=== PATIENT | male | born 1975 | race Caucasian/White ===

== ENCOUNTER 2018-09-28 06:07 | Emergency (ER) | payer SELFPAY ==
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
[2018-09-28 06:17] VITALS: BP 148/98; PULSE 139; RESP 18; TEMP 36.8; O2SAT 99
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
[2018-09-28] MEDS: ACETAMINOPHEN 325 MG TABLET 650 MG PO (06:41)
[2018-09-28] MEDS: TET,DIPH,PERTUSS(ACELL),VAC/PF 0.5 ML SYRINGE IM (06:42)
== END 2018-09-28 07:10 | disposition home or self-care (01) ==
PROVIDERS: Emergency Provider Emergency Medicine
DX: S06.0X9A Concussion with loss of consciousness of unspecified duration, initial encounter (principal); Y08.02XA Assault by strike by baseball bat, initial encounter
CPT/HCPCS: 70450; 90471; 99282; 99283; 90715

== ENCOUNTER 2020-03-20 05:24 | Emergency (ER) | payer SELFPAY ==
[2020-03-20 05:32] VITALS: BP 148/89; PULSE 116; RESP 20; TEMP 36.9; O2SAT 99; BMI 29.2
--- NOTE | 2020-03-20 05:33 | DI.RAD.S_ITS ---
PROCEDURE: XR HAND RT MIN 3V INDICATIONS: dog bite right thumb TECHNIQUE: 3 views of the hand(s) acquired. COMPARISON: None. FINDINGS: Bones: No fractures or dislocations. Carpal bones are normally aligned. No suspicious bony lesions. No plain film evidence of osteomyelitis. Soft tissues: No suspicious soft tissue calcifications. No soft tissue gas. No radiopaque foreign body. IMPRESSION: No evidence acute bony abnormality of the right hand. No soft tissue gas. No radiopaque foreign body. If clinical suspicion and/or symptoms persist, further assessment with repeat plain films, or advanced imaging (e.g., CT, MRI, or bone scan) may be helpful for further assessment. Dictated by: Moody Mary M.D. on 03/20/2020 at 6:49 Approved by: Moody Mary M.D. on 03/20/2020 at 6:50
--- NOTE | 2020-03-20 05:45 | ED.ANIMALBIT ---
HPI - Animal Bite General Chief Complaint: Animal Bite Stated Complaint: DOG BITE RIGHT HAND STATES HIS DOG Time Seen by Provider: 03/20/20 05:45 Source: patient Mode of arrival: Ambulatory Limitations: no limitations History of Present Illness HPI narrative: Otherwise healthy 44-year-old gentleman who was bit by his own dog over the proximal phalanx of his right thumb at approximately noon yesterday. He was apparently trying to break up a dog fight. His dog ended up biting his thumb with the large puncture wound on the palmar surface of the thumb that does not appear to be intra-articular. Wound was washed out well at home and of the next 18 hours has become increasingly painful, warm, swollen and is throbbing now. He has full range of motion at all joints of the thumb and is completely neurovascularly intact. complaint: animal bite Onset (ago): hour(s) (18) Animal: dog Description of animal: household pet Mechanism: bite Location - Extremities: Right: hand Pain description: sharp (throbbing) Severity scale (1-10): 8 Context: animals fighting Associated symptoms: erythema Treatments prior to arrival: irrigation Related Data Patient tetanus UTD: Yes Previous Rx's Medication Instructions Recorded amoxicillin-pot clavulanate 1 tab PO BID #20 tab 03/20/20 [Augmentin XR] Allergies Allergy/AdvReac Type Severity Reaction Status Date / Time No Known Drug Allergies Allergy Verified 09/28/18 06:21 Review of Systems Review of Systems Narrative: Pertinent positive and negative findings as per HPI Remainder of review of systems is otherwise unremarkable for Constitutional: Fevers, chills, weakness CV: Chest pain, palpitations, dyspnea on exertion Respiratory: Cough, wheeze, dyspnea GI: Nausea, vomiting, diarrhea, change in bowel habits, black or bloody stools : Dysuria, hematuria, flank pain MS: Muscle weakness, numbness, joint swelling or warmth Skin: Rashes, nonhealing lesions Neuro: Syncope, dizziness, tingling Patient History Social History Smoking Status: Current every day smoker Smoking Status: Current every day smoker alcohol intake frequency: 0-2 drinks per day Substance Use Type: marijuana Exam Narrative Exam Narrative: General: Alert appropriate in no acute distress Respiratory: Able to speak in full sentences, no obvious respiratory distress Skin: No obvious rashes, warm and dry Neurologic: Grossly intact no obvious asymmetries or abnormalities Psych, appropriate insight and affect, cooperative Extremity: Puncture wound on the palmar surface proximal phalanx right thumb with warmth and swelling to the area without significant redness. Full range of motion at the base of the thumb and thumb joint. No discharge from the wound no lymphangitic spread and no axillary adenopathy the right axilla. Initial Vital Signs Initial Vital Signs: Vital Signs Temperature 98.5 F 03/20/20 05:32 Pulse Rate 116 H 03/20/20 05:32 Respiratory Rate 20 03/20/20 05:32 Blood Pressure 148/89 H 03/20/20 05:32 Pulse Oximetry 99 03/20/20 05:32 Course Orders Ordered: ED Orders 03/20/20 05:33 XR hand RT min 3V Stat 03/20/20 06:15 Basic Metabolic Panel Stat Complete Blood Count AUTO DIFF Stat Discontinued Medications Ampicillin Sodium/Sulbactam (Sodium 1.5 gm/ Sodium Chloride) 100 mls @ 100 mls/hr IV NOW ONE Stop: 03/20/20 05:52 Last Admin: 03/20/20 06:12 Dose: 100 mls/hr Documented by: SUDHA Ketorolac Tromethamine (Toradol) 15 mg IV NOW ONE Stop: 03/20/20 05:52 Last Admin: 03/20/20 06:12 Dose: 15 mg Documented by: SUDHA Oxycodone/Acetaminophen (Endocet 5/325 Prepack) 1 bottle MISC SEEINSTR ONE Stop: 03/20/20 06:52 Vital Signs Vital signs: Vital Signs - 8 hr 03/20/20 05:32 Temperature 98.5 F Pulse Rate 116 H Respiratory Rate 20 Blood Pressure 148/89 H Pulse Oximetry 99 MDM - Animal Bite Medical Records Attestation: I reviewed the patient's medical records. Lab Data Attestation: I reviewed the patient's lab results. Result diagrams: 03/20/20 06:15 03/20/20 06:15 Labs: Lab Results 03/20/20 03/20/20 Range/Units 06:15 06:15 WBC 12.3 H (4.5-11.0) X10^3/uL RBC 4.98 (4.5-5.9) X10^6/uL Hgb 15.6 (13.5-17.5) g/dL Hct 45.1 (41-53) % MCV 90.5 (80-100) fL MCH 31.2 (26-34) PG MCHC 34.5 (30-36) % RDW 12.8 (11.6-14.8) % Plt Count 318 (150-400) X10^3/uL Neut % (Auto) 77.7 H (50-75) % Lymph % (Auto) 10.4 L (25-40) % [place] % (Auto) 10.1 (3-14) % Eos % (Auto) 1.2 L (2-4) % Baso % (Auto) 0.6 (0-2) % Neut # (Auto) 9600 H (7441-6353) /uL Lymph # (Auto) 1300 (9721-0115) /uL [place] # (Auto) 1200 H (0-900) /uL Eos # (Auto) 100 (0-450) /uL Baso # (Auto) 100 (0-100) /uL Sodium 137 (137-145) mmol/L Potassium 4.4 (3.4-5.1) mmol/L Chloride 100 (98-107) mmol/L Carbon Dioxide 31 (22-32) mmol/L BUN 19 (9-20) mg/dL Creatinine 0.81 (0.66-1.25) mg/dL Estimated GFR > 60.0 (>60) mL/min BUN/Creatinine Ratio 23.5 H (6-22) Glucose 109 H (70-100) mg/dL Calcium 9.9 (8.4-10.2) mg/dL Imaging Data Right hand x-ray: Attestation: I personally reviewed and interpreted this imaging study as follows: My Impression: No bony injury and no obvious subcutaneous air around the area of the wound MDM Narrative Medical decision making narrative: Puncture wound dog bite right thumb does not appear to be arterial full range of motion with no flexor or extensor tendon damage and no initial suggestion of joint involvement. Because of the mechanism and the pain will check routine blood work and begin with Unasyn. Toradol for pain control and will re-evaluate heart rate. No fevers significant erythema or lymphangitic spread yet so sepsis is less likely. Given the location and the mechanism certainly at high risk for complication. Patient states he is up-to-date on tetanus. Pain significantly better after IV Toradol. Discharge Plan Departure Patient Disposition: Home Clinical Impression: Dog bite Qualifiers: Encounter type: initial encounter Qualified Code(s): W54.0XXA - Bitten by dog, initial encounter Instructions: DI for Dog Bite Activity Restrictions/Additional Instructions: Thank you for coming in today Your x-ray is reassuring. Your hand clearly is already infected. It does not look like you have developed an overwhelming infection or sepsis and does not look like the infection is deep into your hand or traveling up your arm. Each of these things are concerns and dog bites can get really bad really quickly particularly in the hand. I am going to give you a prescription for Augmentin, an antibiotic. I would like you to take 2 doses today. Using 400 mg of ibuprofen (2 legb-[id number]-[id number] pills) and 1 Tylenol every 6 hours can be very helpful in controlling pain. For severe pain you can use 400 mg of ibuprofen and a single Percocet. Keeping the hand elevated above the level of your heart will help prevent the throbbing sensation. If you are having increasing pain despite pain medications, developing overall fevers, red streaks spreading appear arm or get to the point that you can not move the joints of your thumb a your wrist you need to return to the emergency department. I hope you heal quickly. Prescriptions: New amoxicillin-pot clavulanate [Augmentin XR] 1,000-62.5 mg tablet extended release 12 hr 1 tab PO BID Qty: 20 RF: 0
[2020-03-20] MEDS: KETOROLAC 60 MG/2 ML VIAL 15 MG IV (06:12)
[2020-03-20] MEDS: AMPICILLIN/SULBACTAM 1.5 GM 1.5 GM in SODIUM CHLORIDE 0.9% 100 ML IV (06:12)
[2020-03-20 06:28] LABS: Add Manual Diff / Slide Review NO; Basophils Absolute Auto 100 /uL (0-100); Basophils Percent Auto 0.6 % (0-2); Eosinophils Absolute Auto 100 /uL (0-450); Eosinophils Percent Auto 1.2 % (2-4); Hematocrit 45.1 % (41-53); Hemoglobin 15.6 g/dL (13.5-17.5); Lymphocytes Absolute Auto 1300 /uL (1100-4500); Lymphocytes Percent Auto 10.4 % (25-40); Mean Corpuscular HGB Conc 34.5 % (30-36); Mean Corpuscular Hemoglobin 31.2 PG (26-34); Mean Corpuscular Volume 90.5 fL (80-100); Monocytes Absolute Auto 1200 /uL (0-900); Monocytes Percent Auto 10.1 % (3-14); Neutrophils Absolute Auto 9600 /uL (1500-7000); Neutrophils Percent Auto 77.7 % (50-75); Platelet Count 318 X10^3/uL (150-400); Red Blood Cell Count 4.98 X10^6/uL (4.5-5.9); Red Cell Distribution Width 12.8 % (11.6-14.8); White Blood Cell Count 12.3 X10^3/uL (4.5-11.0)
[2020-03-20 06:37] LABS: BUN Creatinine Ratio 23.5 (6-22); Blood Urea Nitrogen 19 mg/dL (9-20); Calcium 9.9 mg/dL (8.4-10.2); Carbon Dioxide 31 mmol/L (22-32); Chloride 100 mmol/L (98-107); Estimated Glomerular Filt Rate > 60.0 mL/min (>60); Glucose 109 mg/dL (70-100); HEMOLYSIS < 15 (0-50); Potassium 4.4 mmol/L (3.4-5.1); Sodium 137 mmol/L (137-145)
[2020-03-20] MEDS: OXYCODONE/APAP 5/325 PREPACK 1 BOTTLE MISC (07:01)
[2020-03-20 07:36] VITALS: BP 142/84; PULSE 105; RESP 16; TEMP 37; O2SAT 98
--- NOTE | 2020-04-18 09:52 | ONC.MSW ---
Description: New Referral/ABO's Activity: DANK was notified by [facility] pharmacist that we've received a referral for daily ABO's for a patient that was seen over the weekend in acute care for sepsis/osteomyelitis due to dog bite. He has no insurance. notes indicate that he was referred to the admission counselors over the weekend to help him apply for Medicaid, however this never happened, due to no admission counselors working over the weekend. DANK consulted with admin, who has directed us to schedule him anyway. DANK called pt to address his need for insurance, he states that his sister is going to help him apply for Medicaid today. CHUTE MAN confirmed with him that we will work on getting him scheduled today, as he missed his last dose in the hospital yesterday after he refused it and insisted on being discharged home. Updated pharmacist, triage and schedulers. Scheduling will move forward with calling him stat.
== END 2020-03-20 07:38 | disposition home or self-care (01) ==
PROVIDERS: Emergency Provider Emergency Medicine
DX: S61.051A Open bite of right thumb without damage to nail, initial encounter (principal); W54.0XXA Bitten by dog, initial encounter
CPT/HCPCS: 36415; 73130; 80048; 85025; 96365; 96375; 99284; J0295; J1885

== ENCOUNTER 2020-04-16 01:09 | Inpatient (IN) | payer OTHER, MEDICAID, SELFPAY ==
[2020-04-16] VITALS (20 sets, daily range): BP systolic 97–135; BP diastolic 66–98; PULSE 81–114; RESP 9–20; TEMP 35.8–37.1; O2SAT 94–100; BMI 30.7
--- NOTE | 2020-04-16 01:36 | ED_ITS ---
HPI - Extremity Injury (Upper) General Chief Complaint: Extremity Injury, Upper Stated Complaint: right thumb swelling injured 4 wks ago Time Seen by Provider: 04/16/20 01:10 Source: patient Mode of arrival: Ambulatory Limitations: no limitations History of Present Illness HPI narrative: 44M smoker with noncontributory medical history presents with a chief complaint of ongoing redness, pain and swelling of his right thumb. He was seen and evaluated here in the end of February for a thumb injury suffered while trying to break up a dog fight. He was bitten on the thumb and had deep wounds that were carefully cleaned and repaired here in the emergency department. He was put on Augmentin and had negative x-rays. He was largely moving in the right direction while on antibiotics but since they have stopped he is developed ongoing thumb swelling which was draining on the dorsal aspect overlying the interphalangeal joint up until 1 week ago. He denies systemic findings such as fever, chills nor nausea or vomiting. He denies hand pain and has had no red streaks up his arm. NPO since 0200 Related Data Previous Rx's Medication Instructions Recorded amoxicillin-pot clavulanate 1 tab PO BID #20 tab 03/20/20 [Augmentin XR] Allergies Allergy/AdvReac Type Severity Reaction Status Date / Time No Known Drug Allergies Allergy Verified 09/28/18 06:21 Review of Systems Constitutional Constitutional: Denies chills, Denies fatigue, Denies fever(s), Denies frequent falls, Denies lethargy and Denies weakness Eyes Eyes: Denies change in vision, Denies eye discharge, Denies irritation and Denies loss of vision ENT Ears, Nose, Mouth, and Throat: Denies change in voice, Denies dizziness, Denies neck pain, Denies sore throat and Denies throat swelling Cardiovascular Cardiovascular: Denies chest pain, Denies irregular heart rhythm, Denies lightheadedness, Denies palpitations, Denies dyspnea, Denies dyspnea on exertion and Denies orthopnea Respiratory Respiratory: Denies cough, Denies dyspnea, Denies dyspnea on exertion and Denies wheezing Gastrointestinal Gastrointestinal: Denies abdominal pain, Denies change in bowel habits, Denies diarrhea, Denies nausea and Denies vomiting Musculoskeletal Musculoskeletal: Reports arthralgias, Reports joint swelling, Denies neck pain and Denies numbness Integumentary/Breasts Skin/Breast: Denies pruritus, Reports erythema, Denies rash, Reports skin pain, Reports skin swelling and Denies wounds Neurologic Neurologic: Denies behavioral changes, Denies confusion, Denies dizziness, Denies frequent falls, Denies loss of vision, Denies numbness and Denies weakness Psychiatric Psychiatric: Denies anxiety, Denies behavioral changes, Denies confusion, Denies depression, Denies homicidal ideation and Denies suicidal ideation Endocrine Endocrine: Denies fatigue, Denies flushing and Denies palpitations Hematologic/Lymphatic Hematologic/Lymphatic: Denies easy bruising Allergic/Immunologic Allergic/Immunologic: Denies urticaria, Denies throat swelling and Denies wheezing Patient History Social History Smoking Status: Current every day smoker Smoking Status: Current every day smoker alcohol intake frequency: 0-2 drinks per day Substance Use Type: marijuana Exam Narrative Exam Narrative: GENERAL: [44] year old patient appears stated age. Well- nourished, well-developed patient, in mild distress. HEAD: Atraumatic. Normocephalic. EYES: Pupils equal round and reactive. Extraocular motions intact. No scleral icterus. No injection or drainage. ENT: Nose without bleeding, purulent drainage. Throat without erythema, tonsillar hypertrophy or exudate. Airway patent. NECK: Trachea midline. Non tender CARDIOVASCULAR: Regular rate and rhythm without murmurs, gallops, or rubs. RESPIRATORY: Clear to auscultation. Breath sounds equal bilaterally. No wheezes, rales, or rhonchi. GASTROINTESTINAL: Abdomen soft, non-tender, nondistended. EXTREMITIES: Significant swelling, redness and pain of the right thumb. Is University to swollen and range of motion is very much limited. No obvious drainage. No involvement of the hand. High suspicion for underlying abscess BACK: Nontender without deformity or crepitance. No flank tenderness. NEURO: AOx3. SKIN: No rash or erythema of visible areas other than that which is noted above Initial Vital Signs Initial Vital Signs: Vital Signs Temperature 98 F 04/16/20 01:39 Pulse Rate 113 H 04/16/20 01:39 Respiratory Rate 20 04/16/20 01:39 Blood Pressure 127/74 04/16/20 01:39 Pulse Oximetry 96 04/16/20 01:39 Course Orders Ordered: ED Orders 04/16/20 01:27 Basic Metabolic Panel Stat C-Reactive Protein Quant Stat Complete Blood Count AUTO DIFF Stat Erythrocyte Sedimentation Rate Stat 04/16/20 01:44 XR hand RT min 3V Stat Discontinued Medications Ampicillin Sodium/Sulbactam (Sodium 3 gm/ Sodium Chloride) 100 mls @ 100 mls/hr IV NOW ONE Stop: 04/16/20 01:29 Consultations Consultation #1: discussed with Dr. Morris (Ortho) early. Keep NPO, given ABX, COVID swab. Admit and will take to OR in morning. Vital Signs Vital signs: Vital Signs - 8 hr 04/16/20 01:39 Temperature 98 F Pulse Rate 113 H Respiratory Rate 20 Blood Pressure 127/74 Pulse Oximetry 96 MDM - Extremity Injury (Upper) Imaging Data Extremity x-ray #1: Attestation: I personally reviewed and interpreted this imaging study as follows: My Impression: bone erosion distal portion prox phalanx thumb, question osteo Discharge Plan Departure Patient Disposition: Admitted as Observation Clinical Impression: Osteomyelitis Admit Date/Time: 04/16/20 02:58 Admit Provider: Karuna Morris
--- NOTE | 2020-04-16 01:44 | DI.RAD.S_ITS ---
PROCEDURE: XR HAND RT MIN 3V INDICATIONS: dog bite, possible osteomyelitis thumb TECHNIQUE: 3 views of the hand(s) acquired. COMPARISON: [facility], CR, XR HAND RT MIN 3V, 03/20/2020, 5:37. FINDINGS: Bones: There is an impacted fracture identified involving the head of the proximal phalanx of the thumb with corresponding periosteal elevation and osseous erosion along the radial head of the proximal phalanx. An old injury involving the 5th metacarpal appears unchanged with residual deformity. No dislocations are identified. Soft tissues: No suspicious soft tissue calcifications. Soft tissue swelling about the thumb is present. No radiopaque foreign bodies are appreciated. IMPRESSION: Subacute fracture involving proximal phalanx of the thumb. Associated lytic focus on the head of the proximal phalanx is suspicious for osteomyelitis. Other etiologies cannot be completely excluded. Contrast enhanced MRI of the hand would be helpful for better evaluation. Dictated by: Favian Larson M.D. on 04/16/2020 at 7:45 Approved by: Favian Larson M.D. on 04/16/2020 at 7:47
[2020-04-16] MEDS: AMPICILLIN/SULBACTAM 3 GM 3 GM in SODIUM CHLORIDE 0.9% 100 ML IV ×4 (03:09→23:26)
[2020-04-16 03:14] LABS: Add Manual Diff / Slide Review NO; Basophils Absolute Auto 100 /uL (0-100); Basophils Percent Auto 1.1 % (0-2); Eosinophils Absolute Auto 200 /uL (0-450); Eosinophils Percent Auto 2.5 % (2-4); Hemoglobin 14.1 g/dL (13.5-17.5); Lymphocytes Absolute Auto 2000 /uL (1100-4500); Lymphocytes Percent Auto 28.6 % (25-40); Mean Corpuscular HGB Conc 34.5 % (30-36); Mean Corpuscular Hemoglobin 30.8 PG (26-34); Mean Corpuscular Volume 89.4 fL (80-100); Monocytes Absolute Auto 900 /uL (0-900); Monocytes Percent Auto 12.4 % (3-14); Neutrophils Absolute Auto 4000 /uL (1500-7000); Neutrophils Percent Auto 55.4 % (50-75); Platelet Count 340 X10^3/uL (150-400); Red Blood Cell Count 4.59 X10^6/uL (4.5-5.9); Red Cell Distribution Width 12.5 % (11.6-14.8); White Blood Cell Count 7.2 X10^3/uL (4.5-11.0)
[2020-04-16 03:23] LABS: Blood Urea Nitrogen 23 mg/dL (9-20); C-Reactive Protein Quant 0.6 mg/dL (<1.0); Calcium 10.1 mg/dL (8.4-10.2); Carbon Dioxide 31 mmol/L (22-32); Chloride 105 mmol/L (98-107); Estimated Glomerular Filt Rate > 60.0 mL/min (>60); Glucose 126 mg/dL (70-100); HEMOLYSIS < 15 (0-50); Sodium 140 mmol/L (137-145)
[2020-04-16 03:36] LABS: Erythrocyte Sedimentation Rate 8 MM/HR (0-15)
[2020-04-16] MEDS: SODIUM CHLORIDE 0.9% 1,000 ML 125 ML IV (03:54)
[2020-04-16 04:14] LABS: COVID19 -Nasal RAPID Negative (Negative)
--- NOTE | 2020-04-16 08:46 | PM.HP.1 ---
History of Present Illness History of Present Illness Date Patient Seen: 04/16/20 Time Patient Seen: 08:46 Date of Onset of Symptoms: 03/20/20 Chief complaint: right thumb swelling injured 4 wks ago Narrative: This is a 44-year-old gentleman who got bit by a dog in February. It was his sister's dog. He sustained an injury to the right thumb IP region. He was seen in the emergency room at [facility] on 03/20/2020. He has previously been placed on antibiotics including Augmentin. He notes persistent swelling in the right thumb but no severe pain. He returned to the emergency room last night with complaints of ongoing right thumb pain and persistent swelling. I was consulted about 3:00 a.m.. 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 Patient History Family & Social History Social History: household members friend(s) Prior Living Arrangements House Safety & Behavioral: Feels Safe in Current Yes Environment Tobacco & Substance use: Smoking Status Current every day smoker alcohol intake frequency 0-2 drinks per day Substance Use Type marijuana Meds Home Medications and Allergies Home Medications Medication Instructions Recorded Confirmed Type No Known Home Medications 04/16/20 04/16/20 History Allergies Allergy/AdvReac Type Severity Reaction Status Date / Time No Known Drug Allergies Allergy Verified 09/28/18 06:21 Review of Systems Review of Systems Narrative: Denies significant fevers or chills, no recent cardiac or respiratory his symptoms, Exam Vital Signs (past 8 hours): - 04/16/20 01:39 04/16/20 03:25 04/16/20 03:30 Temperature 98 F 98.8 F Pulse Rate 113 H 114 H 102 H Respiratory Rate 20 20 18 Blood Pressure 127/74 125/73 Blood Pressure [Left Arm] 121/66 Pulse Oximetry 96 95 95 04/16/20 08:26 Temperature 97.5 F L Pulse Rate 88 Respiratory Rate 16 Blood Pressure 135/84 Blood Pressure [Left Arm] Pulse Oximetry 94 Oxygen Delivery Method Room Air Oxygen Flow Rate 0 Narrative Exam Narrative: He is resting comfortably in bed HEENT is benign lungs are clear cor regular rate and rhythm abdomen soft and benign, his right upper extremity is remarkable for marked swelling of the right thumb is about 3 2-3 times normal size. There is significant erythema, there is some instability at the IP joint on that fairly mild pain with gentle range of motion of the IP joint. Skins noted it to be intact except for small puncture wound there is no active drainage and there is only mild to moderate erythema. Objective Labs Result Diagrams: 04/16/20 03:00 04/16/20 03:00 Labs: Laboratory Results - last 24 hr 04/16/20 04/16/20 04/16/20 03:00 03:00 03:00 WBC 7.2 RBC 4.59 Hgb 14.1 Hct 41.0 MCV 89.4 MCH 30.8 MCHC 34.5 RDW 12.5 Plt Count 340 Neut % (Auto) 55.4 Lymph % (Auto) 28.6 [place] % (Auto) 12.4 Eos % (Auto) 2.5 Baso % (Auto) 1.1 Neut # (Auto) 4000 Lymph # (Auto) 2000 [place] # (Auto) 900 Eos # (Auto) 200 Baso # (Auto) 100 ESR 8 Sodium 140 Potassium 4.0 Chloride 105 Carbon Dioxide 31 BUN 23 H Creatinine 0.92 Estimated GFR > 60.0 BUN/Creatinine Ratio 25.0 H Glucose 126 H Calcium 10.1 C-Reactive Protein 0.6 COVID-19 PCR Cancelled 04/16/20 03:00 WBC RBC Hgb Hct MCV MCH MCHC RDW Plt Count Neut % (Auto) Lymph % (Auto) [place] % (Auto) Eos % (Auto) Baso % (Auto) Neut # (Auto) Lymph # (Auto) [place] # (Auto) Eos # (Auto) Baso # (Auto) ESR Sodium Potassium Chloride Carbon Dioxide BUN Creatinine Estimated GFR BUN/Creatinine Ratio Glucose Calcium C-Reactive Protein COVID-19 PCR Negative 03/20/2020 right hand: Mild Soft tissue swelling right thumb, IP fairly normal articular cartilage space 04/16/2020 right hand: Marked joint space narrowing of the thumb IP joint, periosteal thickening and some destruction of the proximal phalanx at the thumb IP joint Assessment & Plan Assessment & Plan narrative: Impression is 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 Recommendations and plan I have recommended irrigation and debridement and IV antibiotics. I explained to him that he has a severe infection in his right thumb despite the fact that he does not have significant pain. I do see destruction of the IP joint chronic osteomyelitis with some bone loss of the proximal phalanx. I anticipate that he will need prolonged antibiotics for 6 weeks postoperatively and ultimately he may require additional surgery including a thumb IP joint fusion. Serious nature of the procedure alternatives risks benefits and complications were discussed. I do think his thumb is at risk for loss because of seriousness of the infection. Quality VTE Deep Vein Thrombosis/Pulmonary Embolism Present on Admission: No
[2020-04-16] MEDS: LACTATED RINGERS 1,000 ML 42 ML IV ×2 (09:16→10:43)
[2020-04-16] MEDS: MIDAZOLAM 2 MG/2 ML VIAL IV (09:16)
[2020-04-16] MEDS: METOCLOPRAMIDE 10 MG/2 ML INJ IV (09:23)
[2020-04-16] MEDS: FAMOTIDINE 20 MG/50 ML PIGGYBACK 200 MG IV (09:23)
--- NOTE | 2020-04-16 10:12 | SUR.OPER ---
Supine on padded OR bed, head on pillow, right arm on the arm table under control of surgeon, left arm secured on padded arm boards at <90 degrees abduction, legs uncrossed, safety belt at thigh, tape over blanket over lower legs.
[2020-04-16] MEDS: BUPIVACAINE 0.5% (PF) VIAL 10 ML INJ (10:23)
[2020-04-16] MEDS: SODIUM CHLORIDE 0.9% IRR (10:26)
[2020-04-16] MEDS: GENTAMICIN IRR (10:26)
--- NOTE | 2020-04-16 11:21 | PM.OP.1 ---
Operative Date/Time/Diagnoses Date of procedure: 04/16/20 Time of procedure: 09:21 Pre-op diagnosis: Septic right thumb IP joint and osteomyelitis of the right thumb proximal phalanx Post-op diagnosis: same Procedure & Clinicians Procedure: Right thumb IP joint irrigation and debridement with the synovectomy and debridement of infected right thumb proximal phalanx Same procedure as scheduled: Yes Indications: This is a 44-year-old gentleman who has a history of a right thumb dog bite who has chronic infection in his right thumb IP joint and evidence of osteomyelitis is brought the operating room on an urgent basis for irrigation and debridement. Surgeon: Karuna Morris Anesthesia Type: General Operative Notes Findings: Synovitis of the right thumb IP joint with significant synovial thickening and some articular cartilage loss, chronic osteomyelitis of the right thumb proximal phalanx with softening of the proximal phalanx and a loose articular cartilage piece consistent with a chronic sequestrum Specimen(s): other (Multiple cultures and PCR) Estimated Blood Loss (mL): 100 Blood products transfused: none Tourniquet time (min): 51 Procedure in detail: Patient brought the operating room and underwent the induction of a general anesthesia. His right upper extremity prepped draped standard sterile fashion. The arm was elevated and the tourniquet was inflated. Dense digital block was performed. Dorsal incision was made dissection was carried out through skin and subcutaneous tissues extensor tendon was meticulously protected. An incision was made on the radial aspect of the extensor tendon between the extensor tendon and the collateral ligaments. An there was marked thickening of the synovium of the IP joint. A synovectomy was performed sending synovial tissue which was grossly abnormal for culture and sensitivity as well as PCR. Extensive debridement of the IP joint was performed. On incision was then made along the proximal phalanx on the radial aspect of the proximal phalanx on there was gross softening of the bone and a on cyst or abscess noted in the proximal phalanx. This was meticulously debrided with a curette and a piece of articular cartilage that was grossly loose and a free fragment was removed. The bone was carefully debrided with a curette. The wound was meticulously irrigated with normal saline. A [place] drain was carefully packed into the joint. The skin was loosely closed with interrupted nylon. The wound was dressed sterilely. A splint was placed. Complications: none Post-operative Condition: stable Disposition: Acute Care Plan for aftercare: IV antibiotics for up to 6 weeks postoperatively. Check cultures and sensitivities to pick optimum antibiotics for chronic osteomyelitis of the right thumb after a dog bite. Placed PICC line.
--- NOTE | 2020-04-16 11:36 | SUR.PHASEI ---
Patient taken back to room 211. Left in stable condition with receiving RN at bedside.
[2020-04-16] MEDS: LACTATED RINGERS 1,000 ML 125 ML IV ×2 (12:10→20:17)
[2020-04-16] MEDS: SODIUM CHLORIDE 0.9% FLUSH 10 ML IV (12:10)
--- NOTE | 2020-04-16 12:22 | CM.DANOTE ---
Addendum entered by Gill Cordero R.N. 04/16/20 13:13: Went ahead and faxed referral to [facility], and included face sheet, labs, med list, H&P and operative report. Indicated on fax that patient is self pay, but plan to meet with him. He is employed. Also, on fax, indicated that PICC line will be placed, for he will need 6 weeks of IV antibiotics, but is not known which one at discharge until culture is in. Other option if for patient to come here at the hospital if he goes home on q day ABO. Original Note: DCP: Case received, EMR reviewed and checked on patient. He just had surgery and is asleep. Did put name of this caser on the white board in his room. Was able to complete the DCP assessment based upon the information in patient's chart. Patient is a 44 year old male who admitted early this morning to the care of the orthopedic team. PCP: None listed. Payer: Self, but will have to confirm with patient. Patient came to the hospital via private vehicle secondary to pain and swelling to his right thumb. According to notes, patient had been seen in the ER recently for this, and went home on oral antibiotics. Patient had been bitten by a dog in February, when he was attempting to break up a dog fight. He had been bitten by his sister's dog. Patient holds diagnosis of subacute fracture of phalant of thumb, and osteomyelitis. He just had I&D surgery of area, and is back in his room. Patient resides with friends, here in [place]. 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 He is single. According to orthopedist, it is noted that he has no insurance, but he has applied for Medicaid. Have not yet been able to discuss this with patient. He will also be needing 6 additional weeks of IV ABO, and PICC line will be placed. C&S is pending, at this time. P: DCP will plan to see patient when he is more stable to discuss options. If patient is on QD ABO, may be affordable for him, and he may be able to come over to the hospital for this. If treatments are more than once a day, then this could accrue more costs. Can also check in with [facility]. Will make an effort to talk to patient today, when he is more stable. Will go ahead and send over information to [facility] for review. Will also see what culture comes up to have a better idea of what his ABO needs will be. Gill Cordero RN/Bingo Caller
--- NOTE | 2020-04-16 12:23 | PC.NURSE ---
Addendum entered by Anna Coreas R.N. 04/16/20 13:17: Resting quietly in bed with eyes closed. Respirations regular and unlabored. VSS. Room air, cont pulse ox in place. No s/sx distress or discomfort. IV abx infusing. No further drainage/bleeding on bandage, CMS unchanged from initial post-op assessment. Call light and belongings within reach, bed alarm on. Original Note: Post-op: Arrived back to room 211 [place]x [id number]. Drowsy. Awakens to voice/touch, but dozes back to sleep quickly. Denies pain, 0 FLACC asleep. Dressing to R hand C/D/I except for scant dried blood around the thumb. Able to wiggle fingers, bilateral hands and fingers warm/pink, cap refill < 2 sec. Unable to palpate radial pulse on RUE r/t placement of dressing. Vitals stable, maintaining sats 99-100% on room air w/ cont pulse ox in place. SCD's to BLE's. IVF per orders, site in L AC WNL. Re-oriented to room and call light and encouraged to make needs known. Call light and belongings within reach. Bed alarm turned on during this immediate post-op period.
[2020-04-16] MEDS: OXYCODONE IR 5 MG TABLET PO (18:23)
[2020-04-16] MEDS: ACETAMINOPHEN 325 MG TABLET 975 MG PO (18:23)
[2020-04-16] MEDS: ASPIRIN EC 81 MG TABLET PO (20:43)
[2020-04-16] MEDS: DOCUSATE 100 MG CAPSULE PO (20:43)
--- NOTE | 2020-04-17 | DI.RAD.S_ITS ---
PROCEDURE: XR CHEST 1V INDICATIONS: check PICC placement plz TECHNIQUE: One view of the chest was acquired. COMPARISON: [facility], , CHEST 1 VIEW, 11/01/2010, 16:54. FINDINGS: Surgical changes and devices: Left-sided PICC line catheter is identified with the tip overlying the mid to lower superior vena cava. Lungs and pleura: Lungs are clear. No pleural effusions or pneumothorax. Mediastinum: Mediastinal contours appear normal. Heart size is normal. Bones and chest wall: No suspicious bony lesions. Overlying soft tissues appear unremarkable. IMPRESSION: Left-sided PICC line catheter is positioned with the tip overlying the mid to low superior vena cava. Dictated by: Favian Larson M.D. on 04/17/2020 at 14:36 Approved by: Favian Larson M.D. on 04/17/2020 at 14:36
[2020-04-17 03:10] VITALS: BP 140/83; PULSE 87; RESP 18; TEMP 37; O2SAT 97
[2020-04-17] MEDS: AMPICILLIN/SULBACTAM 3 GM 3 GM in SODIUM CHLORIDE 0.9% 100 ML IV ×2 (05:28→11:09)
[2020-04-17 05:42] LABS: Hemoglobin 14.5 g/dL (13.5-17.5); Mean Corpuscular HGB Conc 34.6 % (30-36); Mean Corpuscular Hemoglobin 31.1 PG (26-34); Mean Corpuscular Volume 89.8 fL (80-100); Platelet Count 285 X10^3/uL (150-400); Red Blood Cell Count 4.68 X10^6/uL (4.5-5.9); Red Cell Distribution Width 12.4 % (11.6-14.8); White Blood Cell Count 6.4 X10^3/uL (4.5-11.0)
[2020-04-17] MEDS: DOCUSATE 100 MG CAPSULE PO (08:12)
[2020-04-17] MEDS: OXYCODONE IR 5 MG TABLET PO (08:12)
[2020-04-17] MEDS: ACETAMINOPHEN 325 MG TABLET 975 MG PO (08:12)
[2020-04-17] MEDS: ASPIRIN EC 81 MG TABLET PO (08:12)
[2020-04-17] MEDS: SODIUM CHLORIDE 0.9% FLUSH 10 ML IV ×2 (08:13→11:09)
[2020-04-17 08:14] VITALS: BP 119/68; PULSE 92; RESP 16; TEMP 36.5; O2SAT 94
--- NOTE | 2020-04-17 10:06 | CM.DPC ---
Addendum entered by Gill Cordero R.N. 04/17/20 13:49: Patient is discharging home today after PICC line is placed. He will have PICC line placed and receive his 1800 ABO. He will then be doing outpatient IV ABO with Jose Luis, which Dr. Morris wrote a script for. Patient is refusing to stay here another night. Will also update [facility]. Addendum entered by Gill Cordero R.N. 04/17/20 13:33: Sent a message to admission counselor regarding situation of insurance, and application for [employer]. Original Note: DCP Cont: Was going to attempt to meet with patient this morning, but nurse, Anna, stated that he has been wanting to go home. He does not yet have PICC line at this time. Encouraged to have mental health case manager come back later after orthopedist sees patient. Patient is getting IV ABO every 6 hours. P: DCP to continue to follow. Will attempt to meet with patient later today, after orthopedic visit. Culture is still pending, as well. Gill Cordero RN/Animal Control Specialist
--- NOTE | 2020-04-17 10:16 | PC.NURSE ---
Addendum entered by Anna Coreas R.N. 04/17/20 15:28: Discharge plan: Patient nearly left AMA multiple times today over frustration r/t not being able to walk off floor or out to smoke, or just with his situation in general. Patient was NOT agreeable to stay another night for PICC line placement/discharge tomorrow. Patient finally agreed to stay until [facility] could place PICC at 1500 today, with plan to discharge immediately afterwards. When Dr Morris was leaving, patient was getting more agitated and at that point this sports book writer told her that he may go AMA, or he may go before his evening dose of IV abx. So she was aware that he might not get evening dose, but would be set up to start at infusion clinic starting tomorrow. This sports book writer put together his discharge paperwork and reviewed it with lizbet abbott RN who will be going over it with him. He needs to call infusion clinic in the morning to set up appt time starting tomorrow, and he also will need to call Dr Morris's office tomorrow to schedule follow up with her in [place] on Saturday. php lamp developer Fabiano faxed orders to infusion clinic, copy in chart. [facility] in placing PICC at this time. Lizbet abbott RN aware that peripheral IV still needs to be removed. Original Note: Shift summary: Alert and oriented X3. The first thing patient said to this sports book writer this morning was I want to get out of here, I'm just laying around and I can do that at home. This sports book writer advised patient re: importance of IV antibiotics, pending micro results and need for PICC line placement should long-term IV abx be required. Reassured that Dr Morris will discuss POC with him when she makes her rounds. Patient denies fever/chills/body aches. VSS. Dressing/splint to R hand dry and intact w/ old dried sanguinous drainage near tip of thumb. Reports intermittent numbness/tingling in R thumb- cap refill < 2 sec, skin pink and warm. Able to make needs known and calls appropriately. Light and belongings within reach, bed alarm on.
[2020-04-17 11:18] VITALS: BP 120/72; PULSE 92; RESP 16; TEMP 36.6; O2SAT 95
--- NOTE | 2020-04-17 12:55 | PM.PN.1 ---
Subjective Subjective Date Patient Seen: 04/17/20 Time Patient Seen: 12:55 Interval history: Nathen notes that he has adequate pain control. He is extremely anxious being in the hospital. He says there is no F ing way he is going to spend another night in the hospital. He says he feels like he needs to be home so that he can smoke a cigarette and sit in his own chair. He does not like the food here and he says he feels like it is senior living. Exam Vital Signs (past 8 hours): - 04/17/20 08:14 04/17/20 11:18 Temperature 97.7 F 97.8 F Pulse Rate 92 H 92 H Respiratory Rate 16 16 Blood Pressure 119/68 120/72 Pulse Oximetry 94 95 Oxygen Delivery Method Room Air Oxygen Flow Rate 0 Narrative Exam Narrative: He is resting comfortably in bed HEENT is benign his splints intact is able the forman's other fingers and his distal tip of his thumb has adequate capillary refill. Objective Labs Result Diagrams: 04/17/20 05:20 04/16/20 03:00 Labs: Laboratory Results - last 24 hr 04/17/20 05:20 WBC 6.4 RBC 4.68 Hgb 14.5 Hct 42.0 MCV 89.8 MCH 31.1 MCHC 34.6 RDW 12.4 Plt Count 285 Culture is no growth to date. PCR is pending. Assessment & Plan Assessment & Plan narrative: Septic right thumb IP joint and osteomyelitis of the right thumb proximal phalanx. Recommendations and plan I have recommended we get a PICC line placed today and place him on IV antibiotics. We had an extensive discussion today he told me that he would leave Against Medical Advice if we did not work out a discharge plan for him for today. I explained to him in detail that I thought that this was a serous serious problem with his thumb he likely was too lose some function of his thumb and he might lose his thumb because of the deep significant infection. He told me that he was leaving today period. After extensive consideration we worked out a plan to get an IV PICC line placed today and allow him to be discharged after his a 6:00 p.m. antibiotic dose and he is going to come back on a daily basis for Rocephin 2 g IV q.day and Levaquin 500 mg IV Q day. Will follow up on his cultures to see if his antibiotics need to be adjusted and on his PCR in case we do not grow a definitive organism. He will follow up with me on Saturday in my [place] office so that I can remove his Michelle drain. Social Work, nursing staff, and myself all attempted to explain to the patient the seriousness of this problem, the importance of getting adequate treatment and that even though it was difficult to be in the hospital it probably was not quite as bad as senior living. He said he was getting progressively more angry and he really needed to leave. Quality VTE Deep Vein Thrombosis/Pulmonary Embolism Present on Admission: No
--- NOTE | 2020-04-17 15:55 | PC.NURSE ---
pt refused 1800 IV antibiotics. PIV removed, PICC placed. xray confirmed. discharge teaching provided. script with patient. pt refused wheelchair.
[2020-05-03 10:01] LABS: Bacteria Det by PCR Univ WA SEE SEPERATE REPORRT
== END 2020-04-17 15:50 | disposition home or self-care (01) | DRG 320 ==
LOC: ED 01:26 → AC 03:10
PROVIDERS: Admitting Provider Orthopaedic Surgery; Emergency Provider Emergency Medicine; Referring Provider Emergency Medicine; Visit Provider Orthopaedic Surgery
PROC: 0PBR0ZZ Excision of Right Thumb Phalanx, Open Approach (ICD-10-PCS; principal; 2020-04-16 09:00)
DX: M00.841 Arthritis due to other bacteria, right hand (principal); M86.141 Other acute osteomyelitis, right hand; S61.0 Open wound of thumb without damage to nail; W54.0XXS Bitten by dog, sequela; F17.210 Nicotine dependence, cigarettes, uncomplicated; Z11.59 Encounter for screening for other viral diseases
CPT/HCPCS: 36415; 36569; 71045; 73130; 80048; 82962; 85025; 85027; 85651; 86140; 87070; 87075; 87176; 87186; 87205; 87635; 87801; 96365; 99284; G0378; J0295; J2250; J2405; J2704; J2765; J3010

== ENCOUNTER 2020-04-18 20:58 | Emergency (ER) | payer OTHER, MEDICAID, SELFPAY ==
[2020-04-16 03:25] VITALS: BMI 30.7
[2020-04-18 21:08] VITALS: BP 158/94; PULSE 133; RESP 18; TEMP 36.9; O2SAT 97
--- NOTE | 2020-04-18 21:08 | ED.GENADULT ---
HPI - General Adult General Chief complaint: Wound/Laceration Stated complaint: RIGHT ARM NEEDS DRESSING CHANGED Time Seen by Provider: 04/18/20 21:00 Source: patient Mode of arrival: Ambulatory Limitations: no limitations History of Present Illness HPI narrative: 44-year-old male here to have his surgical dressing changed in his right upper extremity. Patient underwent orthopedic surgery for osteomyelitis of his right thumb. Has a left arm PICC line in place. Has been getting antibiotics. States that he is here because today he was working and sweated through his splint in the padding was told to come in if this got wet. Reports no pain. Related Data Previous Rx's Medication Instructions Recorded ceftriaxone in dextrose,iso-os 2 gm IV Q24H 42 Days each 04/17/20 hydrocodone-acetaminophen 1 tab PO Q6HR PRN #30 tab 04/17/20 levofloxacin in D5W 500 mg IV Q24H 42 Days #4200 ml 04/17/20 Allergies Allergy/AdvReac Type Severity Reaction Status Date / Time No Known Drug Allergies Allergy Verified 04/18/20 21:13 Review of Systems Constitutional Constitutional: Denies fever(s) Musculoskeletal Comments: No pain right hand Integumentary/Breasts Skin/Breast: Denies lesions and Denies rash Neurologic Comments: No change in neurologic status right hand Hematologic/Lymphatic Hematologic/Lymphatic: Denies easy bleeding and Denies easy bruising Patient History Medical History Osteomyelitis (Inactive) Pain, dental (Inactive) Social History household members: friend(s) Smoking Status: Current every day smoker alcohol intake: current Smoking Status: Current every day smoker alcohol intake frequency: 0-2 drinks per day Substance Use Type: marijuana Exam Initial Vital Signs Initial Vital Signs: Vital Signs Temperature 98.4 F 04/18/20 21:08 Pulse Rate 133 H 04/18/20 21:08 Respiratory Rate 18 04/18/20 21:08 Blood Pressure 158/94 H 04/18/20 21:08 Pulse Oximetry 97 04/18/20 21:08 Const General: cooperative and comfortable Limitations: mental status not altered HENMT Head: normal to inspection and normocephalic Cardio Pulses: radial pulses present on the right Skin Other: There is a surgical wound on the dorsum of his right thumb consistent with his stated history of surgery. There is purulent drainage. Extrem Other: Right thumb is swollen. Course Vital Signs Vital signs: Vital Signs - 8 hr 04/18/20 21:08 Temperature 98.4 F Pulse Rate 133 H Respiratory Rate 18 Blood Pressure 158/94 H Pulse Oximetry 97 Medical Decision Making MDM Narrative Medical decision making narrative: Surgical dressing was removed. He was wet to the touch. Discussed the case with Dr. Morris who is is operative surgeon who stated that we could put a soft dressing back on it. He does have follow-up tomorrow. He will continue his antibiotics. Discharge Plan Departure Patient Disposition: Home Clinical Impression: Change or removal of surgical wound dressing Discharge Date/Time: 04/18/20 21:51 Activity Restrictions/Additional Instructions: Continue with all of the antibiotic infusions as directed. Keep all of your scheduled medical appointments. Keep the bandage that was placed today clean and dry. Return to the emergency department for any new or worsening symptoms Prescriptions: No Action hydrocodone-acetaminophen 5-325 mg Tablet 1 tab PO Q6HR PRN (Reason: Pain, Moderate (4-6)) Qty: 30 RF: 0 levofloxacin in D5W 500 mg/100 mL Piggyback 500 mg IV Q24H 42 Days Qty: 4200 RF: 0 ceftriaxone in dextrose,iso-os 2 gram/50 mL Piggyback 2 gm IV Q24H 42 Days RF: 0
== END 2020-04-18 21:51 | disposition home or self-care (01) ==
PROVIDERS: Emergency Provider Emergency Medicine
DX: Z48.01 Encounter for change or removal of surgical wound dressing (principal)
CPT/HCPCS: 99281

== ENCOUNTER → 2020-04-23 15:23 | Oncology outpatient (ONC) | payer OTHER, MEDICAID, SELFPAY ==
[2020-04-16 03:25] VITALS: BMI 30.7
== END ==
PROVIDERS: PCP Nurse Practitioner Family; Referring Provider Orthopaedic Surgery; Visit Provider Orthopaedic Surgery
DX: M86.9 Osteomyelitis, unspecified (principal); M00.9 Pyogenic arthritis, unspecified

== ENCOUNTER 2020-04-28 13:10 | Emergency (ER) | payer OTHER, MEDICAID, SELFPAY ==
[2020-04-16 03:25] VITALS: BMI 30.7
[2020-04-28 13:15] VITALS: BP 122/71; PULSE 106; RESP 16; TEMP 36.2; O2SAT 97; BMI 29.9
--- NOTE | 2020-04-28 13:20 | ED.RECABL ---
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 He presents to the emergency department today with concerns for possible PICC line infection. He has not had any increased pain swelling discoloration at the site of the PICC line his last infusion was yesterday his next 1 is today at 3:00 a.m. and has had no issues with these. He says that he came in today because he saw a tiny bit of blood near the entrance of the PICC line at his skin under the dressing. He states that he has anxiety about being in the hospital and around doctors and that he always has a fast heart rate when he is in hospital because it makes him uncomfortable.He denies any systemic symptoms including fever, chills, nausea, vomiting, diarrhea, chills, fatigue, reduced appetite or any other symptoms. MD complaint: wound re-check Initial visit (ago): day(s) (10) Initial visit for: other (PICC line insertion ) Returns today for: other (Concern for PICC line infection) Symptoms since prior visit: no new symptoms Context: planned re-check (Appointment for IV infusion 3 PICC line today at 3:00 p.m.) Associated symptoms: none Related Data Previous Rx's Medication Instructions Recorded ceftriaxone in dextrose,iso-os 2 gm IV Q24H 42 Days each 04/17/20 hydrocodone-acetaminophen 1 tab PO Q6HR PRN #30 tab 04/17/20 levofloxacin in D5W 500 mg IV Q24H 42 Days #4200 ml 04/17/20 Allergies Allergy/AdvReac Type Severity Reaction Status Date / Time No Known Drug Allergies Allergy Verified 04/28/20 13:15 Review of Systems <Dianne Morton PA-C - Last Filed: 04/28/20 13:46> Review of Systems Narrative: GENERAL: Denies chills, fatigue, malaise, fever, sweats. HEENT: Denies sinus pain, ear pain, sore throat, difficulty swallowing, dizziness. RESPIRATORY: Denies dyspnea, cough, wheezing, hemoptysis, sputum. CARDIOVASCULAR: Denies chest pain, palpitations, orthopnea, edema, GASTROINTESTINAL: Denies nausea, vomiting, abdominal pain, diarrhea, constipation, melena. : Denies dysuria, frequency, incontinence, hematuria, urinary retention. MUSCULOSKELETAL: denies weakness, joint pain, or bony pain SKIN: A teeny bit of blood noted under his PICC line dressing next to the skin, Denies rash, skin lesions, or other NEUROLOGIC: Denies weakness, headache, numbness, change in speech, confusion, seizures, incoordination. PSYCHIATRIC: No concerning psychosocial issues. 12 point review of systems is negative except for those stated above Patient History <Dianne Morton PA-C - Last Filed: 04/28/20 13:46> Medical History Osteomyelitis (Inactive) Pain, dental (Inactive) Social History household members: friend(s) Smoking Status: Current every day smoker alcohol intake: current Smoking Status: Current every day smoker alcohol intake frequency: 0-2 drinks per day Substance Use Type: marijuana Exam <Dianne Morton PA-C - Last Filed: 04/28/20 13:46> Narrative Exam Narrative: GENERAL: 44 year old patient appears stated age. Well-nourished, well-developed patient, in mild distress. HEAD: Atraumatic. Normocephalic. EYES: Pupils equal round and reactive. Extraocular motions intact. No scleral icterus. No injection or drainage. ENT: Nose without bleeding, purulent drainage. Airway patent. NECK: Trachea midline. Non tender CARDIOVASCULAR: Regular rapid rate and rhythm (104) without murmurs, gallops, or rubs. RESPIRATORY: Clear to auscultation. Breath sounds equal bilaterally. No wheezes, rales, or rhonchi. GASTROINTESTINAL: Abdomen soft, non-tender, nondistended. EXTREMITIES: No edema or joint tenderness. BACK: Nontender without deformity or crepitance. No flank tenderness. NEURO: AOx3. SKIN: There is a PICC line in place in the left proximal anterior arm, there is no associated heat, redness, swelling, tenderness or discoloration of the skin. No other rash or erythema of visible areas Initial Vital Signs Initial Vital Signs: Vital Signs Temperature 97.1 F L 04/28/20 13:15 Pulse Rate 106 H 04/28/20 13:15 Respiratory Rate 16 04/28/20 13:15 Blood Pressure 122/71 04/28/20 13:15 Pulse Oximetry 97 04/28/20 13:15 <Lauren Klein DO - Last Filed: 05/03/20 07:43> Initial Vital Signs Initial Vital Signs: Vital Signs Temperature 97.1 F L 04/28/20 13:15 Pulse Rate 106 H 04/28/20 13:15 Respiratory Rate 16 04/28/20 13:15 Blood Pressure 122/71 04/28/20 13:15 Pulse Oximetry 97 04/28/20 13:15 Scores <Dianne Morton PA-C - Last Filed: 04/28/20 13:46> GCS Jovan coma scale eye opening: Spontaneous Jovan coma scale verbal response: Orientated [place] coma scale motor response: Obey commands [place] coma scale total score: 15 Course <CRYSTAL Fernandes Last Filed: 04/28/20 13:46> Vital Signs Vital signs: Vital Signs - 8 hr 04/28/20 13:15 Temperature 97.1 F L Pulse Rate 106 H Respiratory Rate 16 Blood Pressure 122/71 Pulse Oximetry 97 <Lauren Klein DO - Last Filed: 05/03/20 07:43> Vital Signs Vital signs: Vital Signs - 8 hr 04/28/20 13:15 Temperature 97.1 F L Pulse Rate 106 H Respiratory Rate 16 Blood Pressure 122/71 Pulse Oximetry 97 MDM - Recheck/Abnormal Lab/Rx <CRYSTAL Fernandes Last Filed: 04/28/20 13:46> Differential Diagnosis Differential diagnosis: Likely encounter for wound recheck and other (Anxiety, encounter for PICC line recheck) Medical Records Attestation: I reviewed the patient's medical records. MDM Narrative Medical decision making narrative: This is a well-appearing 44-year-old with a history of osteomyelitis of the thumb, PICC line in place presents to the emergency department with concern for possible PICC line infection due to seeing some blood at the site under the dressing. Differential diagnoses considered include, anxiety, PICC line infection, systemic infection/sepsis Site of the PICC line shows no evidence of infection, patient has no complaints and no systemic symptoms, slightly elevated heart rate is explained by the patient's hospital related anxiety. Labs are not obtained. Patient is advised to follow-up with his regular appointments for IV antibiotics, he reports his next appointment is this afternoon at 3:00 p.m. in approximately 1 hour and 15 minutes. Emergency return precautions were provided, all questions were answered. Discharge Plan Departure Patient Disposition: Home Clinical Impression: Encounter for wound re-check, Status post PICC central line placement Discharge Date/Time: 04/28/20 13:39 Instructions: Peripherally Inserted Central Catheter Activity Restrictions/Additional Instructions: You for letting us to be part of your care in the emergency department today. There is no evidence of an emergent or life threatening illness at this time, but follow up with your doctor in 1-2 days is recommended nonetheless to continue to rule out serious underlying causes of your symptoms. Please call the office for an appointment. Please return to the Emergency Department for any worsening or persistent symptoms. Please take medications as directed. Your PICC line site looks good right now, and I do not have any concerns that it is infected; but if you do develop redness, swelling, pain around the site or if you develop fevers, nausea, vomiting, diarrhea fatigue shortness of breath or any new and concerning symptoms please seek medical care immediately. Please continue to go to your appointments for your IV antibiotic therapy. Prescriptions: No Action hydrocodone-acetaminophen 5-325 mg Tablet 1 tab PO Q6HR PRN (Reason: Pain, Moderate (4-6)) Qty: 30 RF: 0 levofloxacin in D5W 500 mg/100 mL Piggyback 500 mg IV Q24H 42 Days Qty: 4200 RF: 0 ceftriaxone in dextrose,iso-os 2 gram/50 mL Piggyback 2 gm IV Q24H 42 Days RF: 0 Referrals: Jeanette Oneill ARNP [Primary Care Provider] - Stand Alone Forms: Work Release Note <Lauren Klein DO - Last Filed: 05/03/20 07:43> Cosign ED Attending Cosignature Attestation: I was immediately available in the department for consultation. Documentation has been reviewed. I agree with assessment and plan.
== END 2020-04-28 13:39 | disposition home or self-care (01) ==
LOC: ED 13:36
PROVIDERS: Emergency Provider Student in an Organized Health Care Education/Training Program; PCP Nurse Practitioner Family
DX: Z51.89 Encounter for other specified aftercare (principal); Z95.828 Presence of other vascular implants and grafts
CPT/HCPCS: 99281

== ENCOUNTER → 2020-05-31 15:00 | Oncology outpatient (ONC) | payer OTHER, MEDICAID, SELFPAY ==
[2020-04-16 03:25] VITALS: BMI 30.7
[2020-04-18] MEDS: levoFLOXacin 500 MG/100 ML PIGGYBACK 100 MG IV (15:17)
[2020-04-18] MEDS: CEFTRIAXONE 2 GM/50 ML FROZ.PIGGY IV (15:55)
[2020-04-18 16:42] VITALS: BP 123/74; PULSE 115
[2020-04-19] MEDS: CEFTRIAXONE 2 GM/50 ML FROZ.PIGGY IV (11:44)
[2020-04-19] MEDS: levoFLOXacin 500 MG/100 ML PIGGYBACK 100 MG IV (11:44)
[2020-04-19 11:49] VITALS: BP 114/88; PULSE 127; RESP 18; TEMP 37.1; O2SAT 97
--- NOTE | 2020-04-19 11:51 | PC.NURSE ---
heart rate: HR 127 today, yesterday 115. pt drinking a redbull. pt states, I get anxious coming into hospital and dr. shaver. My heart rate is always high. I had many hospitalizations when I was a kid.
[2020-04-20] MEDS: levoFLOXacin 500 MG/100 ML PIGGYBACK 10 MG IV (15:15)
[2020-04-20] MEDS: CEFTRIAXONE 2 GM/50 ML FROZ.PIGGY IV (15:15)
[2020-04-20 15:22] VITALS: BP 125/73; PULSE 111; RESP 18; TEMP 37.1
[2020-04-21] MEDS: levoFLOXacin 500 MG/100 ML PIGGYBACK 100 MG IV (15:32)
[2020-04-21] MEDS: CEFTRIAXONE 2 GM/50 ML FROZ.PIGGY IV (15:32)
[2020-04-21 16:09] VITALS: BP 110/72; PULSE 101; RESP 16; TEMP 36.6; O2SAT 97
[2020-04-22 15:26] VITALS: BP 124/78; PULSE 102; RESP 16; TEMP 36.4; O2SAT 97
--- NOTE | 2020-04-22 15:27 | PC.NURSE ---
patient is sitting in room awaiting infusion to start. Heart rate is elevated, patient states its likely due to being in the hospital and being nervous. Also states I drank a redbull before coming here and I ran up the stairs so I was not late for my appt. otherwise VSS.
[2020-04-22] MEDS: CEFTRIAXONE 2 GM/50 ML FROZ.PIGGY IV (15:29)
[2020-04-22] MEDS: levoFLOXacin 500 MG/100 ML PIGGYBACK 100 MG IV (15:30)
--- NOTE | 2020-04-22 17:54 | PC.NURSE ---
1650: Infusion complete. PICC flushed with NS and Hep per protocol. Pt denies s/s of adverse reactions from infusions. Pt ambulated off unit in stable condition with all personal belongings and double lumen picc in place. Rolando c/d/i.
[2020-04-23 15:30] VITALS: BP 118/75; PULSE 92; RESP 14; TEMP 36.4; O2SAT 94
[2020-04-23] MEDS: levoFLOXacin 500 MG/100 ML PIGGYBACK 100 MG IV (15:44)
[2020-04-23] MEDS: CEFTRIAXONE 2 GM/50 ML FROZ.PIGGY IV (15:45)
[2020-04-24] MEDS: CEFTRIAXONE 2 GM/50 ML FROZ.PIGGY IV (16:12)
[2020-04-24] MEDS: levoFLOXacin 500 MG/100 ML PIGGYBACK 100 MG IV (16:13)
[2020-04-25] MEDS: CEFTRIAXONE 2 GM/50 ML FROZ.PIGGY IV (15:15)
[2020-04-25] MEDS: levoFLOXacin 500 MG/100 ML PIGGYBACK 100 MG IV (15:16)
[2020-04-25 15:54] VITALS: BP 121/72; PULSE 100; RESP 18; TEMP 36.8; O2SAT 98
[2020-04-26] MEDS: levoFLOXacin 500 MG/100 ML PIGGYBACK 100 MG IV (15:25)
[2020-04-26] MEDS: CEFTRIAXONE 2 GM/50 ML FROZ.PIGGY IV (15:25)
--- NOTE | 2020-04-26 15:41 | PC.NURSE ---
PATIENT TEACHING RE PICC LINE INFECTION PREVENTION. INSERTION SITE YESTERDAY AND TODAY SHOWED TANK SLIGHT REDDENING WITH A VERY SMALL AMOUNT OF DRAINAGE. TODAY NO CHANGE AND DRESSING CDI, PATIENT REPORTS NO PAIN. HE WAS GIVEN WRITTEN MATERIALS ON THE SUBJECT AND REINFORCED VERBALLY THAT HE SHOULD REPORT IMMEDIATELY IF PAIN, INCREASE IN REDNESS OR SWELLING, CHILLS OR FEVER. IF IT IS OFF HOURS FOR INFUSION CENTER HE SHOULD GO TO ER. PATIENT VOICED UNDERSTANDING.
[2020-04-27] MEDS: levoFLOXacin 500 MG/100 ML PIGGYBACK 100 MG IV (16:04)
[2020-04-27] MEDS: CEFTRIAXONE 2 GM/50 ML FROZ.PIGGY IV (16:04)
[2020-04-27 16:43] VITALS: BP 124/72; PULSE 94; RESP 18; TEMP 36.4; O2SAT 98
[2020-04-28] MEDS: levoFLOXacin 500 MG/100 ML PIGGYBACK 100 MG IV (15:34)
[2020-04-28] MEDS: CEFTRIAXONE 2 GM/50 ML FROZ.PIGGY IV (15:34)
[2020-04-28 16:27] VITALS: BP 113/67; PULSE 102; RESP 18; O2SAT 97
--- NOTE | 2020-04-28 17:08 | PC.NURSE ---
PICC LINE INSERTION SITE, PINKNESS AT INSERTION SITE HAS NOT INCREASED, NO DRAINAGE TODAY, NO SWELLING, PAIN OR WARMTH.
[2020-04-29 15:35] VITALS: BP 115/73; PULSE 97; RESP 16
[2020-04-29] MEDS: CEFTRIAXONE 2 GM/50 ML FROZ.PIGGY IV (15:35)
[2020-04-29] MEDS: levoFLOXacin 500 MG/100 ML PIGGYBACK 100 MG IV (15:35)
--- NOTE | 2020-04-29 15:47 | PC.NURSE ---
Addendum entered by Kasey Torres R.N. 04/29/20 17:08: Infusion complete. VSS. PICC flushed with NS and heparin per protocol. Ambulated off unit in stable condition. Original Note: Pt arrived for infusion. Picc flushed, good blood return. Infusion started. Pt tolerating well. Pulse elevated at 97 BPM. Pt denies chest pain, pressure, dizziness or palpitations.
[2020-04-29 17:07] VITALS: BP 111/81; PULSE 95; RESP 16; TEMP 36.2
[2020-04-30] MEDS: CEFTRIAXONE 2 GM/50 ML FROZ.PIGGY IV (15:30)
[2020-04-30] MEDS: levoFLOXacin 500 MG/100 ML PIGGYBACK 100 MG IV (15:30)
--- NOTE | 2020-04-30 15:43 | PC.NURSE ---
Addendum entered by Maria Del Rosario Hughes R.N. 04/30/20 16:40: PICC flushed as per protocal w/o incidence Addendum entered by Maria Del Rosario Hughes R.N. 04/30/20 16:39: IV ABOs infused, Dsg to SEA PICC changed. Pt discharged in stable condition. Original Note: Pt arrived for IV infusions. Denies any issues. SEA PICC intact/patent.
[2020-05-01] MEDS: levoFLOXacin 500 MG/100 ML PIGGYBACK 100 MG IV (15:40)
[2020-05-01 15:43] VITALS: BP 116/69; PULSE 76; RESP 18; TEMP 37
[2020-05-01] MEDS: CEFTRIAXONE 2 GM/50 ML FROZ.PIGGY IV (15:43)
--- NOTE | 2020-05-01 15:45 | PC.NURSE ---
Addendum entered by Nickie Lagunas R.N. 05/03/20 17:27: ABX infusion complete, VSS, PICC line flushed per protocol, pt released Addendum entered by Maria Del Rosario Hughes R.N. 05/01/20 16:54: Pt IV infuiosn completed w/o incidence. SEA PICC flused per protocal. Discharged in stable condition. Original Note: Pt arrived for IV ABO infusions SEA PICC intact/patent. Flushed per protocol, ABO infusing.
[2020-05-02] MEDS: levoFLOXacin 500 MG/100 ML PIGGYBACK 100 MG IV (15:33)
[2020-05-02] MEDS: CEFTRIAXONE 2 GM/50 ML FROZ.PIGGY IV (15:33)
[2020-05-02 15:34] VITALS: BP 125/72; PULSE 106; RESP 18; TEMP 36.8; O2SAT 94
[2020-05-03] MEDS: levoFLOXacin 500 MG/100 ML PIGGYBACK 100 MG IV (16:22)
[2020-05-03] MEDS: CEFTRIAXONE 2 GM/50 ML FROZ.PIGGY IV (16:22)
[2020-05-04] MEDS: CEFTRIAXONE 2 GM/50 ML FROZ.PIGGY IV (15:26)
[2020-05-04] MEDS: levoFLOXacin 500 MG/100 ML PIGGYBACK 100 MG IV (15:26)
[2020-05-05] MEDS: levoFLOXacin 500 MG/100 ML PIGGYBACK 100 MG IV (15:33)
[2020-05-05 15:34] VITALS: BP 115/75; PULSE 116; RESP 18; TEMP 36.9; O2SAT 95
[2020-05-05] MEDS: CEFTRIAXONE 2 GM/50 ML FROZ.PIGGY IV (15:34)
[2020-05-06] MEDS: levoFLOXacin 500 MG/100 ML PIGGYBACK 100 MG IV (17:25)
[2020-05-06] MEDS: CEFTRIAXONE 2 GM/50 ML FROZ.PIGGY IV (17:26)
[2020-05-07] MEDS: CEFTRIAXONE 2 GM/50 ML FROZ.PIGGY IV (15:33)
[2020-05-07] MEDS: levoFLOXacin 500 MG/100 ML PIGGYBACK 100 MG IV (15:34)
[2020-05-08 19:00] VITALS: BP 114/72; PULSE 124; RESP 21; TEMP 36.4; O2SAT 94
[2020-05-08] MEDS: CEFTRIAXONE 2 GM/50 ML FROZ.PIGGY IV (19:01)
[2020-05-08] MEDS: levoFLOXacin 500 MG/100 ML PIGGYBACK 100 MG IV (19:01)
--- NOTE | 2020-05-08 20:40 | PC.NURSE ---
Infusion complete. PICC flushed with heparin per protocol. Pt ambulated off unit in stable condition with all personal belongings.
[2020-05-09] MEDS: levoFLOXacin 500 MG/100 ML PIGGYBACK 100 MG IV (15:38)
[2020-05-09] MEDS: CEFTRIAXONE 2 GM/50 ML FROZ.PIGGY IV (15:38)
[2020-05-09 15:50] VITALS: BP 114/67; PULSE 124; RESP 16; TEMP 36.8; O2SAT 96
[2020-05-10 15:29] VITALS: BP 123/75; PULSE 115; RESP 18; TEMP 36.7; O2SAT 96
[2020-05-10] MEDS: levoFLOXacin 500 MG/100 ML PIGGYBACK 100 MG IV (15:29)
[2020-05-10] MEDS: CEFTRIAXONE 2 GM/50 ML FROZ.PIGGY IV (15:30)
[2020-05-11] MEDS: CEFTRIAXONE 2 GM/50 ML FROZ.PIGGY IV (15:29)
[2020-05-11] MEDS: levoFLOXacin 500 MG/100 ML PIGGYBACK 100 MG IV (15:30)
[2020-05-11 15:38] VITALS: BP 115/67; PULSE 117; RESP 16; TEMP 36.7; O2SAT 95
[2020-05-12 15:23] VITALS: BP 114/77; PULSE 120; RESP 18; TEMP 36.7; O2SAT 97
[2020-05-12] MEDS: levoFLOXacin 500 MG/100 ML PIGGYBACK 100 MG IV (15:32)
[2020-05-12] MEDS: CEFTRIAXONE 2 GM/50 ML FROZ.PIGGY IV (15:33)
[2020-05-13] MEDS: levoFLOXacin 500 MG/100 ML PIGGYBACK 100 MG IV (17:15)
[2020-05-13] MEDS: CEFTRIAXONE 2 GM/50 ML FROZ.PIGGY IV (17:15)
[2020-05-13 17:16] VITALS: BP 119/73; PULSE 101; RESP 16; TEMP 36.4; O2SAT 98
[2020-05-14] MEDS: levoFLOXacin 500 MG/100 ML PIGGYBACK 100 MG IV (17:31)
[2020-05-14 17:32] VITALS: BP 125/78; PULSE 120; RESP 16; TEMP 37; O2SAT 96
[2020-05-14] MEDS: CEFTRIAXONE 2 GM/50 ML FROZ.PIGGY IV (17:32)
[2020-05-15] MEDS: levoFLOXacin 500 MG/100 ML PIGGYBACK 100 MG IV (18:00)
[2020-05-15] MEDS: CEFTRIAXONE 2 GM/50 ML FROZ.PIGGY IV (18:00)
[2020-05-15 18:10] VITALS: BP 126/73; PULSE 110; RESP 18; TEMP 36.8; O2SAT 97
--- NOTE | 2020-05-15 19:41 | PC.NURSE ---
Patient had two ABX infusion. Line was flushed with NS and heparin per protocol. No problems/concerns from patient.
[2020-05-16] MEDS: CEFTRIAXONE 2 GM/50 ML FROZ.PIGGY IV (15:36)
[2020-05-16] MEDS: levoFLOXacin 500 MG/100 ML PIGGYBACK 100 MG IV (15:36)
[2020-05-16 15:43] VITALS: BP 123/80; PULSE 107; RESP 16; TEMP 36.9; O2SAT 96
[2020-05-17] MEDS: CEFTRIAXONE 2 GM/50 ML FROZ.PIGGY IV (15:29)
[2020-05-17] MEDS: levoFLOXacin 500 MG/100 ML PIGGYBACK 100 MG IV (15:29)
[2020-05-18] MEDS: levoFLOXacin 500 MG/100 ML PIGGYBACK 100 MG IV (15:31)
[2020-05-18] MEDS: CEFTRIAXONE 2 GM/50 ML FROZ.PIGGY IV (15:32)
[2020-05-18 15:40] VITALS: BP 119/70; PULSE 98; RESP 16; TEMP 36.9; O2SAT 94
[2020-05-19] MEDS: levoFLOXacin 500 MG/100 ML PIGGYBACK 100 MG IV (15:44)
[2020-05-19] MEDS: CEFTRIAXONE 2 GM/50 ML FROZ.PIGGY IV (15:45)
[2020-05-20] MEDS: CEFTRIAXONE 2 GM/50 ML FROZ.PIGGY IV (18:56)
[2020-05-20] MEDS: levoFLOXacin 500 MG/100 ML PIGGYBACK 100 MG IV (18:57)
[2020-05-20 19:08] VITALS: BP 137/85; PULSE 113; RESP 18; TEMP 36.2
--- NOTE | 2020-05-20 19:10 | PC.NURSE ---
Addendum entered by Maria Del Rosario Hughes R.N. 05/20/20 20:12: Pt IV ABO completed w/o incidence. SEA PICC flushed as per protocol. D/C'd inn stable condition. Original Note: Pt arrived @ 1900 for IV ABO infusion SEA PICC intact/patent. Flused per protocal Infusing started w/o incidence. Denies any issues/ concerns @ this time
[2020-05-20 20:10] VITALS: BP 115/75; PULSE 101; RESP 20; TEMP 36.1
[2020-05-21] MEDS: levoFLOXacin 500 MG/100 ML PIGGYBACK 100 MG IV (14:34)
[2020-05-21] MEDS: CEFTRIAXONE 2 GM/50 ML FROZ.PIGGY IV (14:41)
[2020-05-21 14:42] VITALS: BP 122/80; PULSE 102; RESP 18; TEMP 36.6; O2SAT 97
--- NOTE | 2020-05-21 14:48 | PC.NURSE ---
AC infusion note: Patient arrived for Abx therapy via PICC line. Double lumen PICC access and flushed per protocol. VSS and afebrile upon arrival, HR between 100-102, stated hospitals makes him anxious and his HR increases. Independently ambulated to for infusion. Call light within reach. Resting in chair.
[2020-05-22 18:36] VITALS: BP 128/79; PULSE 111; RESP 18; TEMP 36.6; O2SAT 95
[2020-05-22] MEDS: levoFLOXacin 500 MG/100 ML PIGGYBACK 100 MG IV (18:41)
[2020-05-22] MEDS: CEFTRIAXONE 2 GM/50 ML FROZ.PIGGY IV (18:41)
--- NOTE | 2020-05-22 20:02 | PC.NURSE ---
patient completed both anit bx infusions with no complications. Patient left in stable condition and walked out on own to personal vehicle.
[2020-05-23 15:46] VITALS: BP 119/81; PULSE 99; RESP 16; TEMP 36.8; O2SAT 95
[2020-05-23] MEDS: CEFTRIAXONE 2 GM/50 ML FROZ.PIGGY IV (16:16)
[2020-05-23] MEDS: levoFLOXacin 500 MG/100 ML PIGGYBACK 100 MG IV (16:16)
[2020-05-24] MEDS: CEFTRIAXONE 2 GM/50 ML FROZ.PIGGY IV (15:37)
[2020-05-24] MEDS: levoFLOXacin 500 MG/100 ML PIGGYBACK 100 MG IV (15:37)
[2020-05-24 15:41] VITALS: BP 118/71; PULSE 109; RESP 18; TEMP 36.6; O2SAT 95
[2020-05-25] MEDS: levoFLOXacin 500 MG/100 ML PIGGYBACK 100 MG IV (15:33)
[2020-05-25] MEDS: CEFTRIAXONE 2 GM/50 ML FROZ.PIGGY IV (15:33)
[2020-05-25 15:40] VITALS: BP 129/81; PULSE 103; RESP 16; TEMP 37.2; O2SAT 96
[2020-05-26] MEDS: levoFLOXacin 500 MG/100 ML PIGGYBACK 100 MG IV (15:39)
[2020-05-26] MEDS: CEFTRIAXONE 2 GM/50 ML FROZ.PIGGY IV (15:39)
--- NOTE | 2020-05-26 16:48 | PC.NURSE ---
picc line: This RN called Dr. Sanders's office, spoke to Asya. Message to dc PICC or keep by saturday
--- NOTE | 2020-05-27 10:32 | PC.NURSE ---
Addendum entered by Fabiano Ceja R.N. 05/27/20 13:41: Patient called back, he will have his labs drawn, as instructed prior to his infusions this afternoon. Addendum entered by Fabiano Ceja R.N. 05/27/20 12:21: Attempted to reach patient again by phone. Rings once, then to voicemail. No answer. Original Note: SPOKE WITH DR. GRIFFITH THIS AM. STATES PATIENT WAS GIVEN OUTPT LAB SLIP BY HERSELF TO HAVE HIS LABS DRAWN YESTERDAY. PICC LINE WILL BE DC'D PENDING LAB RESULTS ONLY, DR GRIFFITH WILL NEED TO REVIEW LABS PRIOR TO ORDERING TO KEEP PICC OR DC PICC. LEFT MSG FOR PATIENT ON HIS CELL PHONE ASKING HIM TO CALL [facility] [phone] TO CONFIRM THAT HE HAS HAD HIS LABS DRAWN.
[2020-05-27 18:43] VITALS: BP 111/67; PULSE 115; RESP 18; TEMP 36.4; O2SAT 95
[2020-05-27] MEDS: CEFTRIAXONE 2 GM/50 ML FROZ.PIGGY IV (19:06)
[2020-05-27] MEDS: levoFLOXacin 500 MG/100 ML PIGGYBACK 100 MG IV (19:07)
[2020-05-27 19:57] LABS: Add Manual Diff / Slide Review NO; Basophils Absolute Auto 100 /uL (0-100); Eosinophils Absolute Auto 200 /uL (0-450); Eosinophils Percent Auto 2.7 % (2-4); Hematocrit 43.1 % (41-53); Hemoglobin 14.3 g/dL (13.5-17.5); Lymphocytes Absolute Auto 1300 /uL (1100-4500); Lymphocytes Percent Auto 22.6 % (25-40); Mean Corpuscular HGB Conc 33.2 % (30-36); Mean Corpuscular Hemoglobin 29.9 PG (26-34); Mean Corpuscular Volume 90.1 fL (80-100); Monocytes Absolute Auto 500 /uL (0-900); Monocytes Percent Auto 9.3 % (3-14); Neutrophils Absolute Auto 3800 /uL (1500-7000); Neutrophils Percent Auto 64.4 % (50-75); Platelet Count 304 X10^3/uL (150-400); Red Blood Cell Count 4.78 X10^6/uL (4.5-5.9); Red Cell Distribution Width 12.9 % (11.6-14.8); White Blood Cell Count 5.9 X10^3/uL (4.5-11.0)
[2020-05-27 20:06] LABS: C-Reactive Protein Quant < 0.5 mg/dL (<1.0)
--- NOTE | 2020-05-27 20:16 | PC.NURSE ---
2014 IV antibiotics infused, Picc line flushed per protocol, pt left in stable condition
[2020-05-27 20:23] LABS: Erythrocyte Sedimentation Rate 17 MM/HR (0-15)
[2020-05-28] MEDS: levoFLOXacin 500 MG/100 ML PIGGYBACK 100 MG IV (19:06)
[2020-05-28] MEDS: CEFTRIAXONE 2 GM/50 ML FROZ.PIGGY IV (19:06)
[2020-05-28 19:14] VITALS: BP 123/76; PULSE 113; RESP 14; TEMP 36.6; O2SAT 97
[2020-05-29 18:55] VITALS: BP 116/77; PULSE 124; RESP 16; TEMP 36.5; O2SAT 97
[2020-05-29] MEDS: levoFLOXacin 500 MG/100 ML PIGGYBACK 100 MG IV (18:56)
[2020-05-29] MEDS: CEFTRIAXONE 2 GM/50 ML FROZ.PIGGY IV (18:57)
--- NOTE | 2020-05-30 16:16 | PC.NURSE ---
MIRTA Sky triage nurse for Dr. Morris called in a verbal order for PICC removal.
[2020-05-31] MEDS: NEOMYCIN/POLYMYXIN/BACITRA UD OINT 1 EACH TOP (15:23)
== END ==
PROVIDERS: PCP Nurse Practitioner Family; Referring Provider Orthopaedic Surgery; Visit Provider Orthopaedic Surgery
DX: M86.9 Osteomyelitis, unspecified (principal); M00.9 Pyogenic arthritis, unspecified
CPT/HCPCS: 36592; 85025; 85651; 86140; 96365; 96366; 96367; 96368; 96523; J0696; J1642; J1956

== ENCOUNTER 2020-10-03 11:27 | Emergency (ER) | payer OTHER, SELFPAY ==
[2020-04-16 03:25] VITALS: BMI 30.7
[2020-10-03 11:42] VITALS: BP 131/88; PULSE 98; RESP 14; TEMP 36.4; O2SAT 97; BMI 29.2
[2020-10-03 13:03] VITALS: BP 121/71; PULSE 94; O2SAT 99
--- NOTE | 2020-10-03 13:54 | ED_ITS ---
HPI - Dental/Oral <LANCE Sainz - Last Filed: 10/03/20 13:58> General Chief complaint: Dental/Oral Stated complaint: lower right tooth ache x2 days Time Seen by Provider: 10/03/20 12:20 Source: patient Mode of arrival: Ambulatory Limitations: no limitations History of Present Illness HPI Narrative: The patient is a 44-year-old male current smoker with history of dental infection who presents with a chief complaint of wanting antibiotics for dental infection. He notes that he is afraid of the dentist, and does not see the dentist very often. He states that he has several broken teeth and yesterday developed pain and swelling around his right lower molar. He states his pain is well controlled with Aleve. He denies any fevers nausea vomiting or diarrhea. He states he has had no recent dental infections, though notes he has had one a few years ago. He notes that is going to take him about a week to get in to see a dentist. Related Data Previous Rx's Medication Instructions Recorded hydrocodone-acetaminophen 1 tab PO Q6HR PRN #30 tab 04/17/20 penicillin V potassium 500 mg PO TID 10 Days #30 tab 10/03/20 Allergies Allergy/AdvReac Type Severity Reaction Status Date / Time No Known Drug Allergies Allergy Verified 10/03/20 11:48 Review of Systems <LANCE Sainz - Last Filed: 10/03/20 13:58> Review of Systems Narrative: GENERAL: Denies chills, fatigue, malaise, fever, sweats. HEENT: See HPI RESPIRATORY: Denies dyspnea, cough, wheezing, hemoptysis, sputum. CARDIOVASCULAR: Denies chest pain, palpitations, orthopnea, edema, GASTROINTESTINAL: Denies nausea, vomiting, abdominal pain, diarrhea, constipation, melena. : Denies dysuria, frequency, incontinence, hematuria, urinary retention. MUSCULOSKELETAL: denies weakness, joint pain, or bony pain SKIN: Denies rash, skin lesions, or other NEUROLOGIC: Denies weakness, headache, numbness, change in speech, confusion, seizures, incoordination. PSYCHIATRIC: No concerning psychosocial issues. 12 point review of systems is negative except for those stated above Patient History <LANCE Sainz - Last Filed: 10/03/20 13:58> Medical History Osteomyelitis Pain, dental Social History household members: friend(s) Smoking Status: Current every day smoker alcohol intake: current Smoking Status: Current every day smoker tobacco type: cigarettes alcohol intake frequency: 0-2 drinks per day Substance Use Type: marijuana Exam <LANCE Sainz - Last Filed: 10/03/20 13:58> Narrative Exam Narrative: GENERAL: This is a well-nourished, well-developed patient, in no acute distress HEAD: Atraumatic. Normocephalic. No temporal or scalp tenderness. EYES: Pupils equal round and reactive. Extraocular motions intact. No scleral icterus. No injection or drainage. ENT: Nose without bleeding, purulent drainage or septal hematoma. Poor dentition noted with multiple broken teeth, erythema and swelling noted around right lower 1st molar. Airway patent. NECK: Trachea midline. No JVD or lymphadenopathy. Supple, nontender, no meningeal signs. CARDIOVASCULAR: Regular rate and rhythm RESPIRATORY: Clear to auscultation. Breath sounds equal bilaterally. No wheezes, rales, or rhonchi. No cough. No increased respiratory effort. No accessory muscle use. EXTREMITIES: No clubbing, cyanosis, or edema. No joint tenderness, effusion, or edema noted. BACK: Nontender without deformity or crepitance. No flank tenderness. NEURO: AOx3. SKIN: No rash or erythema.. No overlying erythema to face. Initial Vital Signs Initial Vital Signs: Vital Signs Temperature 97.6 F 10/03/20 11:42 Pulse Rate 98 H 10/03/20 11:42 Respiratory Rate 14 10/03/20 11:42 Blood Pressure 131/88 10/03/20 11:42 Pulse Oximetry 97 10/03/20 11:42 <Michelle Bell DO - Last Filed: 10/03/20 19:28> Initial Vital Signs Initial Vital Signs: Vital Signs Temperature 97.6 F 10/03/20 11:42 Pulse Rate 98 H 10/03/20 11:42 Respiratory Rate 14 10/03/20 11:42 Blood Pressure 131/88 10/03/20 11:42 Pulse Oximetry 97 10/03/20 11:42 Scores <VERA Sainz-NOMI - Last Filed: 10/03/20 13:58> GCS [place] coma scale eye opening: Spontaneous Jovan coma scale verbal response: Orientated [place] coma scale motor response: Obey commands Jovan coma scale total score: 15 Course <LANCE Sainz - Last Filed: 10/03/20 13:58> Vital Signs Vital signs: Vital Signs - 8 hr 10/03/20 11:42 10/03/20 13:03 Temperature 97.6 F Pulse Rate 98 H 94 H Respiratory Rate 14 Blood Pressure 131/88 121/71 Pulse Oximetry 97 99 <Michelle Bell DO - Last Filed: 10/03/20 19:28> Vital Signs Vital signs: Vital Signs - 8 hr 10/03/20 11:42 10/03/20 13:03 Temperature 97.6 F Pulse Rate 98 H 94 H Respiratory Rate 14 Blood Pressure 131/88 121/71 Pulse Oximetry 97 99 MDM - Dental/Oral <LANCE Sainz - Last Filed: 10/03/20 13:58> MDM Narrative Medical decision making narrative: The patient is a 44-year-old male who presents requesting antibiotics for a dental infection. Exam correlates with dental infection. He has no overlying erythema, no signs of systemic illness, and is requesting an antibiotic prescription. Given his exam I believe that this is appropriate. He was given a prescription of pen VK, he states understanding that he needs to follow up with dentist and states he will get in to see 1 in about a week. He denies any fevers nausea vomiting, signs of systemic illness and states understanding of these are return precautions. Given that leave has well taken care of his pain prior to arrival he will continue using this. Discussed at length coming back to ER for acute concerns such as signs of systemic illness. Patient has no questions or concerns upon discharge and states understanding of return precautions as well as follow-up care. Discharge Plan Departure Patient Disposition: Home Clinical Impression: Dental infection Instructions: Tooth Abscess, DI for Dental Pain Activity Restrictions/Additional Instructions: Thank you for trusting us with your care today. As discussed, I sent a prescription of an antibiotic for your dental infection to [facility]. Please take this with probiotic or yogurt to help prevent antibiotic related side effects such as diarrhea Please follow-up with a primary care provider. I have given contact information [facility] educational resource center teacher in case you need a primary care provider. I also suggest following up with a dentist. Please use [id number] medications as needed for pain, I also suggest ice packs. Please come back to the emergency department for any acute concerns such as profuse swelling, shortness of breath, inability keep down fluids etcetera Prescriptions: New penicillin V potassium 500 mg tablet 500 mg PO TID 10 Days Qty: 30 RF: 0 No Action hydrocodone-acetaminophen 5-325 mg Tablet 1 tab PO Q6HR PRN (Reason: Pain, Moderate (4-6)) Qty: 30 RF: 0 Referrals: [facility] [Outside] <Michelle Bell DO - Last Filed: 10/03/20 19:28> Cosign ED Attending Costimature Attestation: I was immediately available in the department for consultation. This documentation has been reviewed and I agree with assessment and plan. Supervised by Michelle Bell DO
== END 2020-10-03 13:04 | disposition home or self-care (01) ==
PROVIDERS: Emergency Provider Nurse Practitioner Family
DX: K04.7 Periapical abscess without sinus (principal)
CPT/HCPCS: 99281

== ENCOUNTER 2020-11-09 21:10 | Emergency (ER) | payer OTHER, MEDICAID, SELFPAY ==
[2020-04-16 03:25] VITALS: BMI 30.7
--- NOTE | 2020-11-09 21:18 | DI.RAD.S_ITS ---
PROCEDURE: XR RIBS LT MIN 3V W [id number] INDICATIONS: fall landing ribs, now with pain to left anterior ribs. TECHNIQUE: 2 views of the left ribs were acquired, along with a single view chest. COMPARISON: None. FINDINGS: Surgical changes and devices: None. Bones and chest wall: Lateral left 7th rib fracture, with minimal displacement Lungs and pleura: No pleural effusions or pneumothorax. Lungs appear clear. Mediastinum: Mediastinal contours appear normal. Heart size is normal. IMPRESSION: Left lateral 7th rib fracture. Dictated by: Sami Lindsay M.D. on 11/09/2020 at 21:47 Approved by: Sami iLndsay M.D. on 11/09/2020 at 21:49
[2020-11-09 21:22] VITALS: BP 122/84; BP 142/90; PULSE 122; RESP 17; TEMP 37.2; O2SAT 94; O2SAT 98; BMI 30.7
[2020-11-09 21:23] VITALS: PULSE 117; O2SAT 95
--- NOTE | 2020-11-09 22:32 | ED.CHESTPAIN ---
HPI - Chest Pain General Chief Complaint: Chest Pain Stated Complaint: Fall, Left Rib Pain Time Seen by Provider: 11/09/20 21:56 Source: patient Mode of arrival: Ambulatory Limitations: no limitations History of Present Illness HPI narrative: 45-year-old male here for evaluation of left-sided rib pain. States that 2 days ago he tripped over we will be rolled landed on 1 of the braces hitting his left side. Since that time he has had pain over the area. Has not tried anything for symptoms prior to arrival. Denies any fevers. Related Data Previous Rx's Medication Instructions Recorded hydrocodone-acetaminophen 1 tab PO Q6HR PRN #30 tab 04/17/20 Allergies Allergy/AdvReac Type Severity Reaction Status Date / Time No Known Drug Allergies Allergy Verified 10/03/20 11:48 Review of Systems Constitutional Constitutional: Denies fever(s) Cardiovascular Cardiovascular: Reports chest pain (Assigned chest wall pain) and Denies dyspnea Respiratory Respiratory: Denies dyspnea Gastrointestinal Gastrointestinal: Denies abdominal pain Integumentary/Breasts Skin/Breast: Denies rash Hematologic/Lymphatic Hematologic/Lymphatic: Denies easy bleeding and Denies easy bruising Patient History Medical History Osteomyelitis Pain, dental Social History household members: friend(s) Smoking Status: Current every day smoker alcohol intake: current Smoking Status: Current every day smoker tobacco type: cigarettes alcohol intake frequency: 0-2 drinks per day Substance Use Type: marijuana Exam Initial Vital Signs Initial Vital Signs: Vital Signs Temperature 99.0 F 11/09/20 21:22 Pulse Rate 122 H 11/09/20 21:22 Respiratory Rate 17 11/09/20 21:22 Blood Pressure 122/84 11/09/20 21:22 Pulse Oximetry 98 11/09/20 21:22 Const General: cooperative and comfortable Chest Chest: No crepitus and tenderness (Left-sided lower ribs) Resp Effort & Inspection: normal respiratory effort Auscultation: clear to auscultation bilaterally Skin Lesions: no lesions Rashes: no rashes Neuro General: patient alert and patient awake Extrem General: capillary refill normal Psych Appearance: grossly normal and well kempt Course Orders Ordered: ED Orders 11/09/20 21:18 XR ribs LT min 3V w CXR1V Stat Vital Signs Vital signs: Vital Signs - 8 hr 11/09/20 21:22 11/09/20 21:23 11/09/20 22:33 Temperature 99.0 F Pulse Rate 122 H 117 H Respiratory Rate 17 Blood Pressure 142/90 H 112/63 Pulse Oximetry 94 95 MDM - Chest Pain Imaging Data Chest x-ray: Radiologist's Impression: [address] [id number] ReportSigned Patient: Nathen Benton RMR#: [id number]: [id number]:[id number]/Sex: 45 / MDate of Service: 11/09/20Loc: EDAccession Number: [id number] Procedure: XR ribs LT min 3V w CXR1V Ordering Provider: Wesley Mccracken D.O. PROCEDURE: XR RIBS LT MIN 3V W CXR1V INDICATIONS: fall landing ribs, now with pain to left anterior ribs. TECHNIQUE: 2 views of the left ribs were acquired, along with a single view chest. COMPARISON: None. FINDINGS: Surgical changes and devices: None. Bones and chest wall: Lateral left 7th rib fracture, with minimal displacement Lungs and pleura: No pleural effusions or pneumothorax. Lungs appear clear. Mediastinum: Mediastinal contours appear normal. Heart size is normal. IMPRESSION: Left lateral 7th rib fracture. Dictated by: Sami Lindsay M.D. on 11/09/2020 at 21:47 Approved by: Sami Lindsay M.D. on 11/09/2020 at 21:49 [facility] Narrative Medical decision making narrative: Patient has tenderness to palpation over the area where is reported to have a rib fracture on the x-ray. There is no signs of pneumonia. Underlying lung unremarkable. Patient not in any respiratory distress. I discussed this with the patient. We did discuss care instructions and return precautions. He expressed understanding agreement. Discharge Plan Departure Patient Disposition: Home Clinical Impression: Fracture of rib of left side Instructions: DI for Rib Fracture Activity Restrictions/Additional Instructions: The x-ray today does show a rib fracture however the lung underneath is normal. I do recommend that occasionally you do take a deep breath or cough as this will help prevent worsening conditions such as pneumonia. Return to the emergency department for any shortness of breath or fevers. Prescriptions: No Action hydrocodone-acetaminophen 5-325 mg Tablet 1 tab PO Q6HR PRN (Reason: Pain, Moderate (4-6)) Qty: 30 RF: 0
[2020-11-09 22:33] VITALS: BP 112/63
== END 2020-11-09 22:40 | disposition home or self-care (01) ==
PROVIDERS: Emergency Provider Emergency Medicine
DX: S22.32XA Fracture of one rib, left side, initial encounter for closed fracture (principal); R07.89 Other chest pain; W19.XXXA Unspecified fall, initial encounter
CPT/HCPCS: 71101; 99283

== ENCOUNTER 2021-08-01 11:10 | Emergency (ER) | payer OTHER, MEDICAID, SELFPAY ==
[2020-04-16 03:25] VITALS: BMI 30.7
[2021-08-01 11:32] VITALS: BP 153/99; PULSE 94; RESP 15; TEMP 36.2; O2SAT 98; BMI 29.9
[2021-08-01] MEDS: KETOROLAC 30 MG/ML VIAL IM (15:08)
[2021-08-01] MEDS: AMOXICILLIN/CLAV 875/125 MG 1 TAB PO (15:09)
[2021-08-01 15:18] VITALS: PULSE 87; RESP 16; TEMP 36.1; O2SAT 97
--- NOTE | 2021-08-13 19:28 | ED_ITS ---
HPI - Dental/Oral <Eliezer Gates PA-C - Last Filed: 08/13/21 19:40> General Chief complaint: Dental/Oral Stated complaint: Toothache Time Seen by Provider: 08/01/21 14:32 Source: patient Mode of arrival: Ambulatory Limitations: no limitations History of Present Illness HPI Narrative: 45 year old M with history of poor dentition reports to the ED with 1 days of tooth ache. Patient reports L side lower tooth ache. Denies trouble swallowing, swelling, fever, chills, neck pain, SOB. Does not currently see a dentist. Took aspirin with minimal relief. Related Data Previous Rx's Medication Instructions Recorded hydrocodone 5 mg-acetaminophen 325 1 tab PO Q6HR PRN #30 tab 04/17/ mg tablet amoxicillin 875 mg-potassium 1 tab PO BID 14 Days #28 tab 08/01/21 clavulanate 125 mg tablet (Augmentin) Allergies Allergy/AdvReac Type Severity Reaction Status Date / Time No Known Drug Allergies Allergy Verified 08/01/21 11:32 Review of Systems <Eliezer Gates PA-C - Last Filed: 08/13/21 19:40> Constitutional Constitutional: Denies chills, Denies fatigue, Denies fever(s), Denies frequent falls, Denies lethargy and Denies weakness Eyes Eyes: Denies change in vision, Denies eye discharge, Denies irritation and Denies loss of vision ENT Ears, Nose, Mouth, and Throat: Denies change in voice, Reports dental pain, Denies dizziness, Denies neck pain, Denies sore throat and Denies throat swelling Cardiovascular Cardiovascular: Denies chest pain, Denies irregular heart rhythm, Denies lightheadedness, Denies palpitations, Denies dyspnea, Denies dyspnea on exertion and Denies orthopnea Respiratory Respiratory: Denies cough, Denies dyspnea, Denies dyspnea on exertion and Denies wheezing Gastrointestinal Gastrointestinal: Denies abdominal pain, Denies change in bowel habits, Denies diarrhea, Denies nausea and Denies vomiting Musculoskeletal Musculoskeletal: Denies neck pain and Denies numbness Integumentary/Breasts Skin/Breast: Denies pruritus, Denies erythema, Denies rash and Denies wounds Neurologic Neurologic: Denies behavioral changes, Denies confusion, Denies dizziness, Denies frequent falls, Denies loss of vision, Denies numbness and Denies weakness Psychiatric Psychiatric: Denies anxiety, Denies behavioral changes, Denies confusion, Denies depression, Denies homicidal ideation and Denies suicidal ideation Endocrine Endocrine: Denies fatigue, Denies flushing and Denies palpitations Hematologic/Lymphatic Hematologic/Lymphatic: Denies easy bruising Allergic/Immunologic Allergic/Immunologic: Denies urticaria, Denies throat swelling and Denies wheezing Patient History <Eliezer Gates PA-C - Last Filed: 08/13/21 19:40> Medical History Osteomyelitis Pain, dental Social History household members: friend(s) Smoking Status: Current every day smoker alcohol intake: current Smoking Status: Current every day smoker tobacco type: cigarettes alcohol intake frequency: holidays/special occasions only Substance Use Type: marijuana Exam <Eliezer Gates PA-C - Last Filed: 08/13/21 19:40> Narrative Exam Narrative: Patent airway. Poor dnetition with multiple caries and broken teeth. L sided lower broken tooth TTP. No signs of redness, discharge. No swelling under tongue. Good ROM of neck. Clear speech. Initial Vital Signs Initial Vital Signs: Vital Signs Temperature 97.2 F L 08/01/21 11:32 Pulse Rate 94 H 08/01/21 11:32 Respiratory Rate 15 08/01/21 11:32 Blood Pressure 153/99 H 08/01/21 11:32 Pulse Oximetry 98 08/01/21 11:32 Const General: cooperative HENMT Head: normocephalic and atraumatic Ears: external ears normal and TM's normal bilaterally Nose: external nose normal and No nasal discharge Face and sinus: sinuses nontender, face symmetric, no sinus tenderness and No dry mucous membranes Mouth: oral mucosae normal and moist mucous membranes Teeth and gingiva: poor dentition Throat: tonsils normal and uvula midline Eyes General: appearance normal, both eyes and all related structures Eyelids: eyelids normal Conjunctivae: conjunctivae normal Sclera: sclerae normal Pupils: PERRL EOM: EOM intact bilaterally Neck Neck: normal visual inspection, trachea midline, No lymphadenopathy, No midline deformity and No JVD Lymphatic: No lymphedema Chest Chest: normal inspection of the chest Resp Effort & Inspection: normal respiratory effort, able to speak in complete sentences, no respiratory distress and no use of accessory muscles Auscultation: clear to auscultation bilaterally, no rales, no rhonchi and no wheezes Cardio Rate: regular rate Rhythm: regular rhythm Heart Sounds: no click, no gallops, no murmurs and no rubs Pulses: normal peripheral pulses GI Inspection: non-distended Palpation: soft, no hepatosplenomegaly, No guarding, No pulsatile mass and No tender Auscultation: normal bowel sounds Back/Spine/Pelvis Back: No CVA tenderness Cervical Spine: cervical ROM normal and No pain with cervical ROM Thoracic/Lumbar Spine: thoracic and lumbar spine normal to inspection Skin General: no rashes or lesions noted, No jaundice and No petechiae Neuro General: patient alert, patient oriented x3, gait normal and no focal motor deficits Speech: speech normal Extrem General: full ROM, no clubbing, cyanosis or edema, no pedal edema and no calf tenderness Psych Appearance: well kempt Mental Status: mental status grossly normal Attitude: cooperative Thought Content: normal and suicidality Judgment: judgment good <DO Daphnie Villagran Last Filed: 08/14/21 02:29> Initial Vital Signs Initial Vital Signs: Vital Signs Temperature 97.2 F L 08/01/21 11:32 Pulse Rate 94 H 08/01/21 11:32 Respiratory Rate 15 08/01/21 11:32 Blood Pressure 153/99 H 08/01/21 11:32 Pulse Oximetry 98 08/01/21 11:32 Course <Eliezer Gates PA-C - Last Filed: 08/13/21 19:40> Orders Ordered: Discontinued Medications Amoxicillin/Clavulanate Potassium (Amoxicillin/Clav 875/125 Mg) 1 tab PO NOW ONE Stop: 08/01/21 14:47 Last Admin: 08/01/21 15:09 Dose: 1 tab Documented by: CTRDONTE Ketorolac Tromethamine (Ketorolac 30 Mg/Ml Vial) 30 mg IM NOW ONE Stop: 08/01/21 14:46 Last Admin: 08/01/21 15:08 Dose: 30 mg Documented by: ELAINE <DO Daphnie Villagran Last Filed: 08/14/21 02:29> Orders Ordered: Discontinued Medications Amoxicillin/Clavulanate Potassium (Amoxicillin/Clav 875/125 Mg) 1 tab PO NOW ONE Stop: 08/01/21 14:47 Last Admin: 08/01/21 15:09 Dose: 1 tab Documented by: ELAINE Ketorolac Tromethamine (Ketorolac 30 Mg/Ml Vial) 30 mg IM NOW ONE Stop: 08/01/21 14:46 Last Admin: 08/01/21 15:08 Dose: 30 mg Documented by: ELAINE MDM - Dental/Oral <Eliezer Gates PA-C - Last Filed: 08/13/21 19:40> Medical Records Attestation: I reviewed the patient's medical records. MDM Narrative Medical decision making narrative: 45 year old M with history of poor dentition reports to the ED with 1 days of tooth ache. Symptoms likely d/t apical abscess vs crackd tooth. Will give 1st dose of Augmentin, ibuprofen. Will dc home with rx for Augmentin, f/u with [facility] for dental appointment. Discharge Plan Departure Patient Disposition: Home Clinical Impression: Toothache Instructions: DI for Dental Pain Activity Restrictions/Additional Instructions: You were evaluated for a toothache today in ED. the pain you are experiencing is likely from the tooth that is chipped or the tooth could be infected. Please see a dentist as soon as possible. You may go to [facility] in [place] or [place] for dental services. You may take ibuprofen or Tylenol for pain control. Please complete the full course of Augmentin. Return to the ED if you experience fevers, chills, worsening pain. Prescriptions: New amoxicillin-pot clavulanate [Augmentin] 875-125 mg tablet 1 tab PO BID 14 Days Qty: 28 RF: 0 No Action hydrocodone-acetaminophen 5-325 mg Tablet 1 tab PO Q6HR PRN (Reason: Pain, Moderate (4-6)) Qty: 30 RF: 0 <Tone Walsh DO - Last Filed: 08/14/21 02:29> Cosign ED Attending Cosignature Attestation: I was immediately available in the department for consultation. This documentation has been reviewed and I agree with assessment and plan. Supervised by Tone Walsh DO
== END 2021-08-01 15:20 | disposition home or self-care (01) ==
PROVIDERS: Emergency Provider Student in an Organized Health Care Education/Training Program
DX: K08.89 Other specified disorders of teeth and supporting structures (principal)
CPT/HCPCS: J1885

== ENCOUNTER 2021-08-01 23:31 | Emergency (ER) | payer OTHER, SELFPAY ==
[2020-04-16 03:25] VITALS: BMI 30.7
[2021-08-01 23:46] VITALS: BP 156/105; PULSE 104; RESP 18; TEMP 36.6; O2SAT 96; BMI 29.9
--- NOTE | 2021-08-02 00:16 | ED_ITS ---
HPI - Dental/Oral General Chief complaint: Dental/Oral Stated complaint: toothache lower left side Time Seen by Provider: 08/02/21 00:16 Source: patient Mode of arrival: Ambulatory Limitations: no limitations History of Present Illness HPI Narrative: This is a 45-year-old returns with complaint of a toothache on the lower left side. Patient was seen here earlier today. He states the tooth broke off sometime ago and has intermittently caused pain but has much worse recently. Received a Toradol shot which was helpful and a prescription for antibiotics. Patient states that he fell asleep the pharmacy was closed when he moved pick pulling machine tender his prescription. He still having quite a bit of pain. He is requesting a dental block. Patient states he has had them before and they have been very effective. Patient denies any fevers, no swelling, drainage or other changes. He denies any allergies to medications. He denies any other concerns at this time. Related Data Previous Rx's Medication Instructions Recorded hydrocodone 5 mg-acetaminophen 325 1 tab PO Q6HR PRN #30 tab 04/17/ mg tablet amoxicillin 875 mg-potassium 1 tab PO BID 14 Days #28 tab 08/01/21 clavulanate 125 mg tablet (Augmentin) Allergies Allergy/AdvReac Type Severity Reaction Status Date / Time No Known Drug Allergies Allergy Verified 08/01/21 11:32 Review of Systems Review of Systems ROS Unobtainable: All systems reviewed & are unremarkable except as noted in HPI and below Patient History Medical History (Updated 08/02/21 @ 00:34 by Michelle Bell DO) Osteomyelitis Pain, dental Social History household members: friend(s) Smoking Status: Current every day smoker alcohol intake: current Smoking Status: Current every day smoker tobacco type: cigarettes alcohol intake frequency: holidays/special occasions only Substance Use Type: marijuana Exam Narrative Exam Narrative: GEN: well nourished, well appearing male, alert and oriented x 3, patient appears to be in mild distress. HEENT: Atraumatic, pupils are equal round reactive to light, extraocular movements are intact, nares are clear, TMs are clear with no fluid, there is no conjunctival pallor. Throat is clear without any exudates, erythema, tonsillar enlargement or uvular deviation, patient has poor dentition, multiple areas of caries. Tooth number 21 is fractured off which appears old at the base of the edge of the gums. There is some slight erythema but no obvious fluid collection. No purulent drainage. HEART: Regular rate and rhythm without murmur, clicks, rubs. LUNGS:Lungs clear to auscultation, no wheezes, rales, crackles, chest moves symmetrically ABD:bowel sounds normal, soft, non-tender, no guarding, rebound, rigidity, no masses noted, no hepatosplenomegaly MSCL: full range of motion, normal gait NEURO:CN 2-12 intact, sensation normal SKIN: No rash, erythema or other skin changes Initial Vital Signs Initial Vital Signs: Vital Signs Temperature 97.8 F 08/01/21 23:46 Pulse Rate 104 H 08/01/21 23:46 Respiratory Rate 18 08/01/21 23:46 Blood Pressure 156/105 H 08/01/21 23:46 Pulse Oximetry 96 08/01/21 23:46 Procedures Nerve Block Nerve Block 1: Time of procedure: 00:42 Time out performed: Yes Local Anesthetic: bupivacaine 0.5% Amount of anesthesia used (mL): 1 Side: left Intraoral Nerve Block: supraperiosteal Procedure Successful: Yes Patient Tolerated Procedure: Well Complications: none Course Orders Ordered: Discontinued Medications Amoxicillin/Clavulanate Potassium (Amoxicillin/Clav 875/125 Mg) 1 tab PO NOW ONE Stop: 08/02/21 00:50 Last Admin: 08/02/21 00:52 Dose: 1 tab Documented by: Bupivacaine HCl (Bupivacaine 0.5% (Pf) Vial) 30 ml INJ INTRA-OP ONE Stop: 08/02/21 00:30 Last Admin: 08/02/21 00:54 Dose: 30 ml Documented by: Reevaluation(s) Reevaluation #1: patient has significant improvement in pain after dental block. He does ask for does of antibiotic for tonight so he does not miss a dose and will fill his prescription in the am. Time: 00:46 Vital Signs Vital signs: Vital Signs - 8 hr 08/01/21 23:46 Temperature 97.8 F Pulse Rate 104 H Respiratory Rate 18 Blood Pressure 156/105 H Pulse Oximetry 96 Discharge Plan Departure Patient Disposition: Home Clinical Impression: Broken or cracked tooth, nontraumatic Instructions: DI for Dental Pain Activity Restrictions/Additional Instructions: You did receive a dental block here in the emergency department. This medication typically last 8-12 hours. You do need to fill and start your antibiotic prescription that was given to you earlier in the morning. I would recommend taking up to 800 mg of ibuprofen every 8 hours and/or Tylenol 2000 mg every 8 hours for pain. You can use ice to the affected area if it is helpful. Please return for fevers, new swelling of your face, lips or airway, persistent vomiting, passing, or other new concerning symptoms. Prescriptions: No Action hydrocodone-acetaminophen 5-325 mg Tablet 1 tab PO Q6HR PRN (Reason: Pain, Moderate (4-6)) Qty: 30 RF: 0 amoxicillin-pot clavulanate [Augmentin] 875-125 mg tablet 1 tab PO BID 14 Days Qty: 28 RF: 0
[2021-08-02] MEDS: AMOXICILLIN/CLAV 875/125 MG 1 TAB PO (00:52)
[2021-08-02] MEDS: BUPIVACAINE 0.5% (PF) VIAL 30 ML INJ (00:54)
== END 2021-08-02 00:55 | disposition home or self-care (01) ==
PROVIDERS: Emergency Provider Emergency Medicine
DX: K03.81 Cracked tooth (principal)
CPT/HCPCS: 64450; 99283; J1885

== ENCOUNTER 2023-11-11 16:43 | Emergency (ER) | payer OTHER, MEDICAID, SELFPAY ==
[2020-04-16 03:25] VITALS: BMI 30.7
[2023-11-11 16:45] VITALS: BP 144/79; PULSE 125; RESP 16; TEMP 37.1; O2SAT 98; BMI 32.1
--- NOTE | 2023-11-11 17:32 | ED.EAR ---
HPI - Ear Problem <Sunshine Jalloh PA-C - Last Filed: 11/11/23 19:35> General Chief complaint: Ear Stated complaint: lt ear/neck pain Time Seen by Provider: 11/11/23 16:59 Source: patient Mode of arrival: Ambulatory History of Present Illness HPI Narrative: 48-year-old male with history drug use presenting with insidious onset of left ear pain radiating down the left side of his neck. He also complains of a scratchy throat. Denies trauma to left ear. Patient reports remote history of left tympanic membrane rupture. Patient reports cocaine and marijuana use today and is tachycardic on exam. Denies chest pain, nuchal rigidity, difficulty swallowing, fever, ear discharge, decreased hearing. Related Data Previous Rx's Medication Instructions Recorded hydrocodone 5 mg-acetaminophen 325 1 tab PO Q6HR PRN Pain, Moderate 04/17/20 mg tablet (4-6) #30 tabs amoxicillin 875 mg tablet 875 mg PO BID EARACHE 10 days #20 11/11/23 tabs Allergies Allergy/AdvReac Type Severity Reaction Status Date / Time No Known Drug Allergies Allergy Verified 11/11/23 16:45 Review of Systems <Sunshine Jalloh PA-C - Last Filed: 11/11/23 19:35> Constitutional Constitutional: Denies chills, Denies fatigue, Denies fever(s), Denies frequent falls, Denies lethargy and Denies weakness Eyes Eyes: Denies change in vision, Denies eye discharge, Denies irritation and Denies loss of vision ENT Ears, Nose, Mouth, and Throat: Denies change in voice, Denies dizziness, Reports otalgia, Denies neck pain, Denies sore throat and Denies throat swelling Comments: Left ear pain with associated left neck pain. Mild sore throat. Cardiovascular Cardiovascular: Denies chest pain, Denies irregular heart rhythm, Denies lightheadedness, Denies palpitations, Denies dyspnea, Denies dyspnea on exertion and Denies orthopnea Respiratory Respiratory: Denies cough, Denies dyspnea, Denies dyspnea on exertion and Denies wheezing Gastrointestinal Gastrointestinal: Denies abdominal pain, Denies change in bowel habits, Denies diarrhea, Denies nausea and Denies vomiting Musculoskeletal Musculoskeletal: Denies neck pain and Denies numbness Integumentary/Breasts Skin/Breast: Denies pruritus, Denies erythema, Denies rash and Denies wounds Neurologic Neurologic: Denies behavioral changes, Denies confusion, Denies dizziness, Denies frequent falls, Denies loss of vision, Denies numbness and Denies weakness Psychiatric Psychiatric: Denies anxiety, Denies behavioral changes, Denies confusion, Denies depression, Denies homicidal ideation and Denies suicidal ideation Endocrine Endocrine: Denies fatigue, Denies flushing and Denies palpitations Hematologic/Lymphatic Hematologic/Lymphatic: Denies easy bruising Allergic/Immunologic Allergic/Immunologic: Denies urticaria, Denies throat swelling and Denies wheezing Patient History <Sunshine Jalloh PA-C - Last Filed: 11/11/23 19:35> Medical History (Updated 11/12/23 @ 01:52 by Lauren Klein DO) Wears glasses Osteomyelitis Pain, dental Surgical History (Updated 09/23/23 @ 21:38 by Funmilayo Sheppard) Anesthesia History of synovectomy (04/16/20) Family History (Updated 09/23/23 @ 21:40 by Funmilayo Sheppard) Father History of heart disease Brother Hypertension Hyperlipidemia Sister Hypertension Hyperlipidemia Mother Kidney failure Sister Mental health problem Social History household members: friend(s) Smoking Status: Current every day smoker alcohol intake: current Smoking Status: Current every day smoker tobacco type: cigarettes alcohol intake frequency: holidays/special occasions only Substance Use Type: marijuana and crack/cocaine Exam <Sunshine Jalloh PA-C - Last Filed: 11/11/23 19:35> Initial Vital Signs Initial Vital Signs: Vital Signs Temperature 98.7 F 11/11/23 16:45 Pulse Rate 125 H 11/11/23 16:45 Respiratory Rate 16 11/11/23 16:45 Blood Pressure 144/79 H 11/11/23 16:45 Pulse Oximetry 98 11/11/23 16:45 Oxygen Delivery Method Room Air 11/11/23 16:45 PHYSICAL EXAM: GEN: Cooperative healthy appearing. NAD. HEENMT: Head: ?Normocephalic, atraumatic Ears: ?Hearing grossly normal bilaterally. Bilateral external auditory canals nonerythematous. Right tympanic membrane pearly white with light reflex intact. Mild tenderness to left tragus. Left tympanic membrane erythematous. No fluid nor discharge. Eyes: ?Normal appearance. non-edematous, no icterus bilaterally. Nose: ?External nose normal. Face: ?Face symmetric. Mouth: ?Oral mucosae normal. Throat: ?Posterior oropharynx mildly erythematous. No exudate. NECK: Normal visual inspection. No nuchal rigidity. Mild left preauricular adenopathy. ABD: ?No tenderness to palpation all 4 quadrants, nondistended. LUNGS: ?No audible wheezes heard. Vesicular breath sounds bilaterally CARD: Tachycardic. No murmurs, rubs nor gallops. Extremities non-edematous. NEURO: Alert and oriented x 3. No focal deficits. Moving all extremities with appropriate strength.. <Santino Webster MD - Last Filed: 11/12/23 13:08> Initial Vital Signs Initial Vital Signs: Vital Signs Temperature 98.7 F 11/11/23 16:45 Pulse Rate 125 H 11/11/23 16:45 Respiratory Rate 16 11/11/23 16:45 Blood Pressure 144/79 H 11/11/23 16:45 Pulse Oximetry 98 11/11/23 16:45 Oxygen Delivery Method Room Air 11/11/23 16:45 Course <Sunshine Jalloh PA-C - Last Filed: 11/11/23 19:35> Vital Signs Vital signs: Vital Signs - 8 hr 11/11/23 16:45 11/11/23 17:33 Temperature 98.7 F Pulse Rate 125 H 115 H Respiratory Rate 16 18 Blood Pressure 144/79 H 124/77 Pulse Oximetry 98 99 Oxygen Delivery Method Room Air Room Air <Santino Webster MD - Last Filed: 11/12/23 13:08> Vital Signs Vital signs: Vital Signs - 8 hr 11/11/23 16:45 11/11/23 17:33 Temperature 98.7 F Pulse Rate 125 H 115 H Respiratory Rate 16 18 Blood Pressure 144/79 H 124/77 Pulse Oximetry 98 99 Oxygen Delivery Method Room Air Room Air Medical Decision Making <Sunshine Jalloh PA-C - Last Filed: 11/11/23 19:35> MDM Narrative Medical decision making narrative: 48-year-old male with history drug use presenting with insidious onset of left ear pain radiating down the left side of his neck. Of note patient reports cocaine and marijuana use today and is tachycardic on exam. Ear complaint of concern for differential diagnosis of ear pain versus bullous myringitis versus acute otitis media. On exam, discomfort to left tragus. External ear canal without redness. Erythematous tympanic membrane. Clinical findings consistent with otitis media. Patient discharged home with amoxicillin 875 mg b.i.d. times 10 days. Clinical findings discussed and reviewed with patient, plan of care discussed in ER precautions given. If experiencing worsening symptoms, such as, fever, increased ear pain, purulent ear discharge, hearing loss or other concerning symptoms patient instructed to return to the ED. patient states understanding and is in agreement with plan. Medical records reviewed. Discharge Plan Departure Patient Disposition: Home Clinical Impression: Earache Activity Restrictions/Additional Instructions: You were evaluated today in the ED for left ear pain. It appears your symptoms are likely due to an acute ear infection. You were prescribed amoxicillin 875 mg to be taken twice a day times 10 days. Your prescription was sent to the [facility] in [place]. Please follow-up with your PCP as needed. If any concerning signs or symptoms such as fever, progressive ear pain, purulent ear discharge, decreased hearing or any other concerning symptoms please return to the ED. Thank you for allowing us to be involved in your care. Feel better soon! Prescriptions: New amoxicillin 875 mg tablet 875 mg PO BID 10 Days Qty: 20 0RF No Action hydrocodone-acetaminophen 5-325 mg Tablet 1 tab PO Q6HR PRN (Reason: Pain, Moderate (4-6)) Qty: 30 0RF Referrals: Miscellaneous,Doctor, MD [Primary Care Provider] - Stand Alone Forms: Patient Portal/API ED Sign-out <Santino Webster MD - Last Filed: 11/12/23 13:08> Cosign ED Attending Jay Attestation: I was immediately available in the department for consultation. Documentation has been reviewed. I agree with assessment and plan.
[2023-11-11 17:33] VITALS: BP 124/77; PULSE 115; RESP 18; O2SAT 99
== END 2023-11-11 17:34 | disposition home or self-care (01) ==
PROVIDERS: Emergency Provider Physician Assistant Surgical
DX: H92.02 Otalgia, left ear (principal); R00.0 Tachycardia, unspecified; J02.9 Acute pharyngitis, unspecified; J02.0 Streptococcal pharyngitis; Z20.822 Contact with and (suspected) exposure to COVID-19
CPT/HCPCS: 0241U; 87651; 99281; 99283

== ENCOUNTER 2023-11-11 23:50 | Emergency (ER) | payer OTHER, MEDICAID, SELFPAY ==
[2020-04-16 03:25] VITALS: BMI 30.7
[2023-11-12 00:06] VITALS: BP 143/91; PULSE 115; RESP 20; TEMP 38.3; O2SAT 96; BMI 32.1
[2023-11-12] MEDS: IBUPROFEN 400 MG TABLET 800 MG PO (00:16)
--- NOTE | 2023-11-12 00:31 | ED_ITS ---
HPI - URI/Sore Throat General Chief Complaint: Fever Stated Complaint: chills and fever was seen earlier Time Seen by Provider: 11/12/23 00:07 Source: patient Mode of arrival: Ambulatory History of Present Illness HPI Narrative: Patient 48-year-old male history of crack cocaine use today presents today with sore throat and earache. 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 He continues to have some sore throat and earache. It has been ongoing for the past few days worse today. He is now noted to be febrile and tachycardic. He reports that he did not use cocaine between visits he used it earlier this morning. No chest pain cough or shortness of breath he is able to swallow. Related Data Previous Rx's Medication Instructions Recorded hydrocodone 5 mg-acetaminophen 325 1 tab PO Q6HR PRN Pain, Moderate 04/17/20 mg tablet (4-6) #30 tabs amoxicillin 875 mg tablet 875 mg PO BID EARACHE 10 days #20 11/11/23 tabs Allergies Allergy/AdvReac Type Severity Reaction Status Date / Time No Known Drug Allergies Allergy Verified 11/11/23 16:45 Patient History Medical History (Updated 11/12/23 @ 01:52 by Lauren Klein DO) Wears glasses Osteomyelitis Pain, dental Surgical History (Updated 09/23/23 @ 21:38 by Funmilayo Sheppard) Anesthesia History of synovectomy (04/16/20) Family History (Updated 09/23/23 @ 21:40 by Funmilayo Sheppard) Father History of heart disease Brother Hypertension Hyperlipidemia Sister Hypertension Hyperlipidemia Mother Kidney failure Sister Mental health problem Social History household members: friend(s) Smoking Status: Current every day smoker alcohol intake: current Smoking Status: Current every day smoker tobacco type: cigarettes alcohol intake frequency: holidays/special occasions only Substance Use Type: marijuana and crack/cocaine Exam Initial Vital Signs Initial Vital Signs: Vital Signs Temperature 101.0 F H 11/12/23 00:06 Pulse Rate 115 H 11/12/23 00:06 Respiratory Rate 20 11/12/23 00:06 Blood Pressure 143/91 H 11/12/23 00:06 Pulse Oximetry 96 11/12/23 00:06 Oxygen Delivery Method Room Air 11/12/23 00:06 GENERAL: Alert 48-year-old appears to not feel well HEENT: Head atraumatic,EOMI, pupils reactive, face symmetric, moist mucous membranes EARS: Left tympanic membrane visualized minimal erythema nonbulging right tympanic membrane no abnormalities PHARYNX: Exudative tonsils with mild the left cervical lymphadenopathy no uvula swelling or deviation no drooling managing air CARDIOVASCULAR: Tachycardic regular no murmur RESPIRATORY: Breath sounds equal bilaterally, no wheezes rales or rhonchi. EXTREMITIES: Normal range of motion, no clubbing or edema. Neurovascularly intact NEUROLOGICAL: Alert and oriented x4.Normal gait and speech. SKIN: Warm, dry, no laceration, no petechiae, no rashes or lesions. Course Orders Ordered: ED Orders 11/12/23 00:49 Covid-19 + FLU A/B + RSV - PCR Stat Strep Grp A by PCR Rapid Stat Discontinued Medications Acetaminophen (Acetaminophen 325 Mg Tablet) 975 mg PO NOW ONE Stop: 11/12/23 01:09 Last Admin: 11/12/23 01:11 Dose: Not Given Documented By: BRINA Acetaminophen (Acetaminophen 325 Mg Tablet) 975 mg PO NOW ONE Stop: 11/12/23 01:09 Last Admin: 11/12/23 01:11 Dose: 975 mg Documented By: BRINA Amoxicillin (Amoxicillin 250 Mg Prepack) 1 bottle MISC DIRECTED ONE Stop: 11/12/23 01:09 Last Admin: 11/12/23 01:12 Dose: 1 bottle Documented By: BRINA Ibuprofen (Ibuprofen 400 Mg Tablet) 800 mg PO NOW ONE Stop: 11/12/23 00:09 Last Admin: 11/12/23 00:16 Dose: 800 mg Documented By: BRINA Vital Signs Vital signs: Vital Signs - 8 hr 11/12/23 00:06 11/12/23 01:06 11/12/23 01:06 Temperature 101.0 F H 101.4 F H 101.4 F H Pulse Rate 115 H 120 H Respiratory Rate 20 20 Blood Pressure 143/91 H Pulse Oximetry 96 96 Oxygen Delivery Method Room Air Room Air 11/12/23 02:03 11/12/23 02:04 Temperature 98.8 F 98.8 F Pulse Rate 116 H Respiratory Rate 18 Blood Pressure 122/67 Pulse Oximetry 95 Oxygen Delivery Method Room Air [facility] - URI/Sore Throat Lab Data Labs: Lab Results 11/12/23 Range/Units 00:49 SARS-CoV-2 (PCR) Negative (Negative) Influenza A (RT-PCR) Flu a negative (NEGATIVE) Influenza B (RT-PCR) Flu b negative (NEGATIVE) RSV (PCR) Negative (Negative) Group A Strep (PCR) Positive H (Negative) [facility] Narrative Medical decision making narrative: Patient 48-year-old male here for 2nd visit today. He is now febrile continues to be tachycardic. 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 On exam pharynx does show some mild enlargement of tonsils with some exudate and cervical lymphadenopathy. Non impressive left tympanic membrane, but mildly erythematous. Positive for strep negative viral panel. He is given Tylenol Motrin here in the ED of along with his 1st dose of amoxicillin and prepack. Encouraged him to follow-up and warehouse order picker his amoxicillin already prescribed Patient is tachycardic always tachycardic heart rate did start to improve. He is ambulatory to the restroom. Positive for strep low suspicion for sepsis viral panel is negative Discharge Plan Departure Patient Disposition: Home Clinical Impression: Strep pharyngitis Instructions: Strep Throat Activity Restrictions/Additional Instructions: *You have been diagnosed with strep throat *What to do: Increase fluids as tolerated. Should start feeling better in about 2-3 days with antibiotics but you must warehouse order picker your antibiotics *Continue to take medications as directed Take prior antibiotic as prescribed *Follow up with your primary care provider in 2-3 days or call [phone] *Return to ER if you should have difficulty breathing difficulty swallowing or any new, worsening or concerning symptoms Prescriptions: No Action hydrocodone-acetaminophen 5-325 mg Tablet 1 tab PO Q6HR PRN (Reason: Pain, Moderate (4-6)) Qty: 30 0RF amoxicillin 875 mg tablet 875 mg PO BID 10 Days Qty: 20 0RF Referrals: Miscellaneous,Doctor, MD [Primary Care Provider] - Stand Alone Forms: Patient Portal/API
[2023-11-12 01:05] LABS: Strep Grp A by PCR Rapid Positive (Negative)
[2023-11-12 01:06] VITALS: PULSE 120; RESP 20; TEMP 38.6; O2SAT 96
--- NOTE | 2023-11-12 01:06 | PC.NURSE ---
cooling measures initiated via cool compress to forehead. notified of current vs
[2023-11-12] MEDS: ACETAMINOPHEN 325 MG TABLET 975 MG PO (01:11)
[2023-11-12] MEDS: AMOXICILLIN 250 MG PREPACK 1 BOTTLE MISC (01:12)
[2023-11-12 01:38] LABS: Influenza A - CEPHEID Flu A NEGATIVE (NEGATIVE); Influenza B - CEPHEID Flu B NEGATIVE (NEGATIVE); Respiratory Syncytial Virus Negative (Negative)
[2023-11-12 01:40] LABS: COVID-19 CEPHEID 4-PLEX PCR Negative (Negative)
[2023-11-12 02:03] VITALS: BP 122/67; PULSE 116; RESP 18; TEMP 37.1; O2SAT 95
[2023-11-12 02:04] VITALS: TEMP 37.1
--- NOTE | 2023-11-22 14:37 | PC.NURSE ---
Patient called ER requesting for Amoxicillin prescription to be called into [facility] pharmacy as [facility] couldn't fill his RX. Ok per Dr Mccracken to call in original order in patients discharge note from Dr Klein on 11/11/23
== END 2023-11-12 02:06 | disposition home or self-care (01) ==
PROVIDERS: Emergency Provider Emergency Medicine
DX: J02.0 Streptococcal pharyngitis (principal); Z20.822 Contact with and (suspected) exposure to COVID-19
CPT/HCPCS: 0241U; 87651; 99283

== ENCOUNTER 2025-05-17 23:13 | Emergency (ER) | payer OTHER, MEDICAID, SELFPAY ==
[2020-04-16 03:25] VITALS: BMI 30.7
== END 2025-05-18 01:00 | disposition left against medical advice (07) ==
LOC: ED 05-18 01:03
PROVIDERS: Emergency Provider Student in an Organized Health Care Education/Training Program